=== PATIENT | female | born 1970 | race Caucasian/White ===

== ENCOUNTER 2019-05-25 17:08 | Emergency (ER) | payer SELFPAY ==
[2019-05-25] MEDS ORDERED: ZIPRASIDONE MESYLATE INJ/PF 20 MG SDV IM ONE ×2 (17:33→18:02)
--- NOTE | 2019-05-25 17:36 | ER Document Report ---
ED Medical Screen (RME) - General Chief Complaint: Psych Problem Stated Complaint: POSSIBLE ANIEXY Time Seen by Provider: 05/25/19 17:32 TRAVEL OUTSIDE OF THE [place] IN LAST 30 DAYS: No - HPI Notes: 05/25/19 17:34 I was called to the waiting room for this patient and she appears to be very manic and paranoid with history of mental health disorder, unknown diagnosis by family member who is accompanying her. Patient does take Prozac as well as Seroquel. Patient was escorted to the room with security and Dr. Wiggins met us there who assumed care. I have treated and performed a rapid initial assessment of this patient. A comprehensive ED assessment and evaluation of the patient, analysis of test results and completion of medical decision making process will be conducted by additional ED providers. PHYSICAL EXAMINATION: GENERAL: manic, paronoid, flight of thoughts - Related Data Allergies/Adverse Reactions: No Known Allergies Allergy (Unverified 05/25/19 17:10)
[2019-05-25 18:50] LABS: ABSOLUTE BASOPHILS # (AUTO) 0.1 10^3/uL (0.0-0.2); ABSOLUTE EOSINOPHILS # (AUTO) 0.1 10^3/uL (0.0-0.6); ABSOLUTE LYMPHOCYTES (AUTO) 1.6 10^3/uL (0.5-4.7); ABSOLUTE MONOCYTES (AUTO) 0.4 10^3/uL (0.1-1.4); EOSINOPHILS % (AUTO) 2.3 % (0-6); HEMATOCRIT 39.1 % (36.0-47.0); HEMOGLOBIN 13.2 g/dL (12.0-15.5); LYMPHOCYTES % (AUTO) 31.3 % (13-45); MEAN CORPUSCULAR HEMOGLOBIN 28.4 pg (27.0-33.4); MEAN CORPUSCULAR HGB CONC 33.7 g/dL (32.0-36.0); MEAN CORPUSCULAR VOLUME 85 fl (80-97); MONOCYTES % (AUTO) 7.7 % (3-13); PLATELET COUNT 257 10^3/uL (150-450); RED BLOOD COUNT 4.63 10^6/uL (3.72-5.28); RED CELL DISTRIBUTION WIDTH 13.3 % (11.5-14.0); SEGMENTED NEUTROPHILS % (AUTO) 57.7 % (42-78); TOTAL CELLS COUNTED % (AUTO) 100 %; WHITE BLOOD COUNT 5.3 10^3/uL (4.0-10.5)
[2019-05-25 19:06] LABS: ALBUMIN 4.4 g/dL (3.5-5.0); ALKALINE PHOSPHATASE 87 U/L (38-126); ANION GAP 12 (5-19); ASPARTATE AMINO TRANSFERASE 30 U/L (14-36); BILIRUBIN,DIRECT 0.2 mg/dL (0.0-0.4); BILIRUBIN,TOTAL 0.4 mg/dL (0.2-1.3); BLOOD UREA NITROGEN 11 mg/dL (7-20); CALCIUM 9.6 mg/dL (8.4-10.2); CARBON DIOXIDE 23 mmol/L (22-30); CHLORIDE 102 mmol/L (98-107); GLUCOSE 104 mg/dL (75-110); POTASSIUM 3.6 mmol/L (3.6-5.0)
[2019-05-25 19:07] LABS: ACETAMINOPHEN < 10 ug/mL (10-30); ALCOHOL < 10 mg/dL (NONE DETECTED); SALICYLATE < 1.0 mg/dL (2.0-20.0)
[2019-05-25 20:44] LABS: AMORPHOUS SEDIMENT,URINE TRACE /HPF; APPEARANCE,URINE CLOUDY; BILIRUBIN,URINE NEGATIVE (NEGATIVE); COLOR,URINE YELLOW; GLUCOSE, URINE NEGATIVE (NEGATIVE); KETONES,URINE NEGATIVE (NEGATIVE); LEUKOCYTE ESTERASE,URINE NEGATIVE (NEGATIVE); NITRITE,URINE NEGATIVE (NEGATIVE); PROTEIN,URINE NEGATIVE (NEGATIVE); URINE SPECIFIC GRAVITY 1.009; UROBILINOGEN,URINE NEGATIVE mg/dL (<2.0)
[2019-05-25 20:49] LABS: URINE BARBITURATES SCREEN NEGATIVE; URINE BENZODIAZEPINES SCREEN NEGATIVE; URINE COCAINE SCREEN NEGATIVE; URINE MARIJUANA (THC) SCREEN NEGATIVE; URINE METHADONE SCREEN NEGATIVE; URINE PHENCYCLIDINE SCREEN NEGATIVE
--- NOTE | 2019-05-25 21:18 | ER Document Report ---
ED General - General Chief Complaint: Psych Problem Stated Complaint: POSSIBLE ANIEXY Time Seen by Provider: 05/25/19 17:32 TRAVEL OUTSIDE OF THE [place] IN LAST 30 DAYS: No - HPI Notes: Patient is a 49-year-old female who presents to the emergency department for evaluation. Entire history is garnered from a man who presents himself as her boyfriend. He states that the patient lives in [place]. She has had some significant mental health issues, although he is not sure of her current diagnosis. She is on Prozac and Seroquel. Evidently her sister was murdered recently. They were on a road trip in the patient's where she saw her sister. Evidently, since then, she has been increasingly paranoid and volatile in behavior. He brings her here for further evaluation. Unfortunately, given patient's current mental state I cannot obtain any meaningful information from her at this time. - Related Data Allergies/Adverse Reactions: No Known Allergies Allergy (Unverified 05/25/19 17:10) Home Medications: Prozac, Seroquel Past Medical History - General Information source: Friend - Social History Smoking Status: Current Every Day Smoker Drug Abuse: Methamphetamine - History of methamphetamine use, unknown if current Family History: Reviewed & Not Pertinent Patient has suicidal ideation: No Patient has homicidal ideation: No Renal/ Medical History: Denies: Hx Peritoneal Dialysis Psychiatric Medical History: Reports: Other - Unknown psychiatric disorder Review of Systems - Review of Systems -: Yes ROS unobtainable due to patient's medical condition - Patient is currently psychotic Physical Exam - Vital signs Vitals: Temp Pulse Resp BP Pulse Ox 98 F 92 22 H 123/75 94 05/25/19 17:32 05/25/19 17:32 05/25/19 17:32 05/25/19 17:32 05/25/19 17:32 - Notes Notes: This is a 49-year-old female who appears her stated age. She is being restrained by several guards. She is screaming, lashing out, punching. She is screaming about aliens, and that she has to save her parents from being murdered. She looks repeatedly had a application security engineer stating he is there to mur nixon her. Pupils are equal and round, reactive to light. Oral mucosa is moist. Heart is tachycardic with normal S1-S2. Abdomen is soft, appears nontender. Patient moves all 4 extremities spontaneously. She has no gross facial asymmetry. Skin is warm and mildly diaphoretic. Patient is clearly delusional and extremely agitated. Course - Re-evaluation Re-evalutation: 05/25/19 21:16 Patient presents to the emergency department for evaluation. On arrival here she was extremely agitated, and in extreme danger to herself and others. She was placed in four-point restraints and medicated with Geodon. Patient was a pulled to be reevaluated in the restraints removed, but she at this point is refusing to cooperate with examiner. She will not answer any questions. IVC order has been placed, patient is medically cleared. Awaiting psychiatric evaluation tomorrow. - Vital Signs Vital signs: Temp Pulse Resp BP Pulse Ox 98 F 92 22 H 123/75 94 05/25/19 17:32 05/25/19 17:32 05/25/19 17:32 05/25/19 17:32 05/25/19 17:32 - Laboratory Result Diagrams: 05/25/19 18:30 05/25/19 18:30 Laboratory results interpreted by me: 05/25/19 18:30 Salicylates < 1.0 L Acetaminophen < 10 L - EKG Interpretation by Me Additional EKG results interpreted by me: 05/25/19 21:17 Sinus mechanism with a rate of 65 bpm. Normal axis and intervals, no acute ST changes concerning for ischemia or infarction. Discharge - Discharge Clinical Impression: Psychosis Qualifiers: Schizoaffective disorder type: unspecified Condition: Stable Disposition: OTHER
--- NOTE | 2019-05-26 09:01 | EKG REPORT ---
SEVERITY:- NORMAL ECG - SINUS RHYTHM : Confirmed by: Collette Cardoza MD 26-May-2019 09:00:32
--- NOTE | 2019-05-26 10:20 | ER Document Report ---
Doctor's Note Notes: 05/26/19 10:20 Rounds: Chart reviewed and patient interviewed. Patient was brought in for evaluation and treatment of paranoid feelings and manic state of bipolar disorder. Lab studies were all essentially normal. Vital signs are all essentially normal. Patient appears to be medically stable for transfer or discharge. Chintan Decker MD
[2019-05-26] MEDS ORDERED: CHLORPROMAZINE HCL INJ 25 MG/1 ML AMPULE IM ONE (11:47)
[2019-05-26] MEDS ORDERED: BENZTROPINE MESYLATE INJ 2 MG/2 ML AMPULE IM ONE (11:49)
[2019-05-26] MEDS: CHLORPROMAZINE HCL 50 MG TABLET PO SCH ×3 (12:34→23:31)
[2019-05-26] MEDS: BENZTROPINE MESYLATE 1 MG TABLET PO SCH (12:34)
[2019-05-27] MEDS: CHLORPROMAZINE HCL 50 MG TABLET PO SCH ×3 (07:04→22:20)
--- NOTE | 2019-05-27 09:55 | ER Document Report ---
Doctor's Note Notes: 05/27/19 09:55 49-year-old male who presented initially extremely agitated with possibly some hallucinations or paranoid delusions. Questions about the patient possibly using meth amphetamines. Patient has been much more calm and cooperative. Vital signs stable. Labs as recorded.
[2019-05-27] MEDS: BENZTROPINE MESYLATE 1 MG TABLET PO SCH (10:17)
--- NOTE | 2019-05-27 13:41 | PSYCHOLOGICAL NOTE ---
Psych Note - Psych Note Date seen by psych provider: 05/26/19 Time seen by psych provider: 07:50 Psych Note: Reason for Consult: psychosis Patient is a 49-year-old female who presents to the emergency department for evaluation. Patient refuses to engage with evaluation stating that she will not report why she had to come to [facility] because "you all make it look like I am crazy." Patient refused to roll over or turn and face clinician. Patient then started to ask if her mother and father are currently in the hospital as patient's. Patient becomes very agitated and really refuses to further engage. Unspecified psychosis R/O methamphetamine use Medication recommendations per [facility]'s contracted psychiatrist Dr. Pauline SHAVER are as follows Thorazine 50 mg every 8 hours Cogentin 1 mg daily Impression\\plan: Patient is recommended to continue under IVC. Patient refuses to effectively engage with clinician demonstrates continued difficulties with organized and linear thought processes. Medication recommendations have been provided and patient will be reevaluated. Dr. Villasenor was consulted to care management of this patient; attending physicians in agreement with recommendations and disposition.
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
[2019-05-28] MEDS: CHLORPROMAZINE HCL 50 MG TABLET PO SCH (05:50)
--- NOTE | 2019-05-28 09:10 | ER Document Report ---
Doctor's Note Notes: 05/28/19 09:09 Patient is calm and cooperative at this time. Vital signs are stable. Labs from previously as recorded. Awaiting psychology/psychiatry disposition. 05/28/19 11:54 The psychology/behavioral health team is seen and assessed the patient. They do not believe that the patient meets IVC criteria at this time. Patient is very thought congruent at this time and oriented x4. Father and brother are currently in the room I would like to take the patient home. Patient understands the importance of refraining from drugs. She currently denies any auditory or visual hallucinations. She denies any suicidal homicidal ideations. Patient supposedly has a history of bipolar disorder but does not believe that she requires medications. She currently has no flight of ideas or racing thoughts. She currently denies any pain to any part of the body. Patient is new to this area as is the family. They feel very comfortable taking the patient home. We will provide outpatient psychiatric and substance abuse resources to the patient and family. They understand to return at anytime with any new or change in behavior.
[2019-05-28] MEDS ORDERED: CHLORPROMAZINE HCL INJ 25 MG/1 ML AMPULE IM PRN (09:54)
--- NOTE | 2019-05-28 10:11 | PSYCHOLOGICAL NOTE ---
Psych Note - Psych Note Date seen by psych provider: 05/28/19 Time seen by psych provider: 08:05 Psych Note: Reason for Consult: psychosis Patient is a 49-year-old female who presents to the emergency department for evaluation. Check in with patient Patient is observed smiling and engaging with her family. She reports she has no concerns at this time would like to go home. She confirms that she does not want to take medications for her possible bipolar diagnosis. Clinician highly encourage patient to refrain from using illegal substances as this will make her symptoms worse. Patient denies any thoughts of wanting to harm herself or others. She is not demonstrate any behaviors of responding to internal stimuli i.e. organized linear thought processes. Conversational speech is within normal rate, tone and prosody. She maintains eye contact well. Clinician met with patient father and boyfriend at bedside per patient's request. They report they have no concerns with the patient returning home with them. Boyfriend does ask about assistance in maintaining "episodes." When discussing the patient's wishes of not taking medications clinician provided psychoeducation. It was also discussed that the patient did have significant stressor of her sister's passing away a month ago which could trigger an episode. Patient was again highly encouraged to abstain from illegal substances. Methamphetamine use disorder Uncomplicated bereavement R/O bipolar Updated Medication recommendations per [facility]'s contracted psychiatrist Dr. Pauline SHAVER are as follows Thorazine 50 mg every 8 hours PRN Cogentin 1 mg daily PRN Impression\\plan: Patient is recommended for rescind of IVC and is cleared from acute psychiatric services. Patient no longer meets IVC criteria per [place] GS 122C. Patient is not demonstrating any behaviors of responding to internal stimuli. Delusions are absent behaviors congruent with an intact reality based presentation I organized and linear thought process. Both patient's father and boyfriend at bedside confirm they would like the patient return to return home and states they have no concerns at this time. Patient is highly encouraged to abstain from illegal substances and to follow-up with outpatient mental health and substance abuse treatment. Local resource list were provided to the patient including mobile crisis contact information. Dr. Villasenor was consulted to care management of this patient; attending physicians in agreement with recommendations and disposition.
[2019-05-28] MEDS: BENZTROPINE MESYLATE 1 MG TABLET PO SCH (12:13)
[2019-05-28 13:44] VITALS: BP 112/75
== END 2019-05-28 13:55 | disposition home or self-care (01) ==
LOC: ER 17:08
DX: F19.10 Other psychoactive substance abuse, uncomplicated (principal); Z63.4 Disappearance and death of family member; F29 Unspecified psychosis not due to a substance or known physiological condition; Z79.899 Other long term (current) drug therapy; F17.200 Nicotine dependence, unspecified, uncomplicated
CPT/HCPCS: 93005; 99284; 96372; 36415; 80307 ×4; 84703; 85025; 80053; 81001; 93010; J0515; J3230; J3490 ×3; J3486

== ENCOUNTER 2019-12-13 16:29 | Emergency (ER) | payer SELFPAY ==
[2019-12-13] MEDS ORDERED: ZIPRASIDONE MESYLATE INJ/PF 20 MG SDV IM ONE ×2 (16:38→16:39)
[2019-12-13] MEDS ORDERED: LORAZEPAM INJ 2 MG/1 ML VIAL IM ONE (16:39)
[2019-12-13] MEDS ORDERED: LORAZEPAM INJ 2 MG/1 ML VIAL IV ONE (16:53)
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
[2019-12-13 18:07] LABS: ABSOLUTE BASOPHILS # (AUTO) 0.1 10^3/uL (0.0-0.2); ABSOLUTE EOSINOPHILS # (AUTO) 0.1 10^3/uL (0.0-0.6); ABSOLUTE LYMPHOCYTES (AUTO) 1.1 10^3/uL (0.5-4.7); ABSOLUTE MONOCYTES (AUTO) 0.7 10^3/uL (0.1-1.4); BASOPHILS % (AUTO) 0.6 % (0-2); EOSINOPHILS % (AUTO) 0.6 % (0-6); HEMATOCRIT 32.8 % (36.0-47.0); HEMOGLOBIN 11.8 g/dL (12.0-15.5); LYMPHOCYTES % (AUTO) 9.8 % (13-45); MEAN CORPUSCULAR HEMOGLOBIN 29.8 pg (27.0-33.4); MEAN CORPUSCULAR HGB CONC 35.8 g/dL (32.0-36.0); MEAN CORPUSCULAR VOLUME 83 fl (80-97); MONOCYTES % (AUTO) 6.4 % (3-13); PLATELET COUNT 297 10^3/uL (150-450); RED BLOOD COUNT 3.94 10^6/uL (3.72-5.28); RED CELL DISTRIBUTION WIDTH 13.8 % (11.5-14.0); SEGMENTED NEUTROPHILS % (AUTO) 82.6 % (42-78); TOTAL CELLS COUNTED % (AUTO) 100 %; WHITE BLOOD COUNT 10.8 10^3/uL (4.0-10.5)
[2019-12-13 18:29] LABS: ALBUMIN 3.7 g/dL (3.5-5.0); ALKALINE PHOSPHATASE 111 U/L (38-126); ANION GAP 6 (5-19); ASPARTATE AMINO TRANSFERASE 30 U/L (14-36); BILIRUBIN,TOTAL 0.2 mg/dL (0.2-1.3); BLOOD UREA NITROGEN 12 mg/dL (7-20); CALCIUM 8.9 mg/dL (8.4-10.2); CARBON DIOXIDE 28 mmol/L (22-30); CHLORIDE 107 mmol/L (98-107); GLUCOSE 114 mg/dL (75-110); POTASSIUM 3.6 mmol/L (3.6-5.0); TOTAL PROTEIN 6.4 g/dL (6.3-8.2)
[2019-12-13 18:30] LABS: ALCOHOL < 10 mg/dL (NONE DETECTED)
[2019-12-14 00:59] LABS: APPEARANCE,URINE TURBID; BILIRUBIN,URINE NEGATIVE (NEGATIVE); COLOR,URINE YELLOW; GLUCOSE, URINE NEGATIVE (NEGATIVE); KETONES,URINE NEGATIVE (NEGATIVE); LEUKOCYTE ESTERASE,URINE MODERATE (NEGATIVE); NITRITE,URINE NEGATIVE (NEGATIVE); PROTEIN,URINE 100 mg/dL (NEGATIVE); URINE SPECIFIC GRAVITY 1.017; UROBILINOGEN,URINE NEGATIVE mg/dL (<2.0)
[2019-12-14 01:02] LABS: ADD MANUAL MICROSCOPIC YES; BACTERIA,URINE TRACE /HPF
[2019-12-14 01:03] LABS: AMORPHOUS SEDIMENT,UR TRACE
[2019-12-14 01:40] LABS: URINE BARBITURATES SCREEN NEGATIVE; URINE BENZODIAZEPINES SCREEN NEGATIVE; URINE COCAINE SCREEN NEGATIVE; URINE MARIJUANA (THC) SCREEN NEGATIVE; URINE METHADONE SCREEN NEGATIVE; URINE PHENCYCLIDINE SCREEN NEGATIVE
[2019-12-14 08:34] LABS: ACETAMINOPHEN < 10 ug/mL (10-30); SALICYLATE < 1.0 mg/dL (2.0-20.0)
[2019-12-14 09:15] LABS: ALBUMIN 4.2 g/dL (3.5-5.0); ALKALINE PHOSPHATASE 110 U/L (38-126); ANION GAP 10 (5-19); ASPARTATE AMINO TRANSFERASE 40 U/L (14-36); BILIRUBIN,DIRECT 0.2 mg/dL (0.0-0.4); BILIRUBIN,TOTAL 0.4 mg/dL (0.2-1.3); BLOOD UREA NITROGEN 12 mg/dL (7-20); CALCIUM 9.5 mg/dL (8.4-10.2); CARBON DIOXIDE 30 mmol/L (22-30); CHLORIDE 103 mmol/L (98-107); GLUCOSE 166 mg/dL (75-110); POTASSIUM 3.9 mmol/L (3.6-5.0); TOTAL PROTEIN 7.6 g/dL (6.3-8.2)
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
[2019-12-14] MEDS: CHLORPROMAZINE HCL 50 MG TABLET PO SCH ×2 (11:15→17:26)
[2019-12-14] MEDS ORDERED: BENZTROPINE MESYLATE 1 MG TABLET PO SCH (11:15)
--- NOTE | 2019-12-14 17:24 | EKG REPORT ---
SEVERITY:- ABNORMAL ECG - SINUS RHYTHM LEFT VENTRICULAR HYPERTROPHY : Confirmed by: Benja Ulrich 14-Dec-2019 17:23:24
[2019-12-14 17:36] VITALS: BP 98/87
== END 2019-12-14 17:33 ==
LOC: ER 16:29
DX: F23 Brief psychotic disorder (principal); R61 Generalized hyperhidrosis; R47.9 Unspecified speech disturbances; F17.210 Nicotine dependence, cigarettes, uncomplicated
CPT/HCPCS: 93005; 99291; 99292; 96372; 96374; 36415; 80307 ×4; 84443; 85025; 81025; 87070; 80053; 81001; 93010; J3490; J2060; J3486

== ENCOUNTER 2020-02-09 07:08 | Emergency (ER) | payer SELFPAY ==
[2020-02-09] MEDS ORDERED: HALOPERIDOL 5 MG TABLET PO ONE (07:15)
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
[2020-02-09 07:49] LABS: APPEARANCE,URINE CLOUDY; BILIRUBIN,URINE NEGATIVE (NEGATIVE); COLOR,URINE YELLOW; GLUCOSE, URINE NEGATIVE (NEGATIVE); KETONES,URINE NEGATIVE (NEGATIVE); LEUKOCYTE ESTERASE,URINE NEGATIVE (NEGATIVE); NITRITE,URINE NEGATIVE (NEGATIVE); PROTEIN,URINE 30 mg/dL (NEGATIVE); URINE SPECIFIC GRAVITY 1.019; UROBILINOGEN,URINE NEGATIVE mg/dL (<2.0)
[2020-02-09 08:02] LABS: ABSOLUTE BASOPHILS # (AUTO) 0.1 10^3/uL (0.0-0.2); ABSOLUTE EOSINOPHILS # (AUTO) 0.2 10^3/uL (0.0-0.6); ABSOLUTE LYMPHOCYTES (AUTO) 1.5 10^3/uL (0.5-4.7); ABSOLUTE MONOCYTES (AUTO) 0.6 10^3/uL (0.1-1.4); ABSOLUTE NEUT (AUTO) 4.7 10^3/uL (1.7-8.2); BASOPHILS % (AUTO) 1.4 % (0-2); HEMATOCRIT 37.9 % (36.0-47.0); HEMOGLOBIN 12.9 g/dL (12.0-15.5); LYMPHOCYTES % (AUTO) 20.7 % (13-45); MEAN CORPUSCULAR HEMOGLOBIN 29.1 pg (27.0-33.4); MEAN CORPUSCULAR HGB CONC 34.2 g/dL (32.0-36.0); MEAN CORPUSCULAR VOLUME 85 fl (80-97); PLATELET COUNT 323 10^3/uL (150-450); RED BLOOD COUNT 4.45 10^6/uL (3.72-5.28); RED CELL DISTRIBUTION WIDTH 13.9 % (11.5-14.0); SEGMENTED NEUTROPHILS % (AUTO) 65.9 % (42-78); TOTAL CELLS COUNTED % (AUTO) 100 %; WHITE BLOOD COUNT 7.1 10^3/uL (4.0-10.5)
[2020-02-09 08:05] LABS: URINE BARBITURATES SCREEN NEGATIVE; URINE BENZODIAZEPINES SCREEN NEGATIVE; URINE COCAINE SCREEN NEGATIVE; URINE MARIJUANA (THC) SCREEN NEGATIVE; URINE METHADONE SCREEN NEGATIVE; URINE PHENCYCLIDINE SCREEN NEGATIVE
--- NOTE | 2020-02-09 08:06 | ER Document Report ---
Doctor's Note Notes: 02/09/20 08:05 Report received on the patient, lab work is pending for medical clearance 02/09/20 08:22 Received a call from the lab they cannot result in amphetamine test again and are requesting an order to have it sent to [facility] 02/09/20 08:35 Lab work is resulted does not show acute emergent abnormalities. Patient is medically cleared for psychiatric service to evaluate
[2020-02-09 08:10] LABS: ALBUMIN 4.3 g/dL (3.5-5.0); ALKALINE PHOSPHATASE 117 U/L (38-126); ANION GAP 6 (5-19); ASPARTATE AMINO TRANSFERASE 35 U/L (14-36); BILIRUBIN,TOTAL 0.3 mg/dL (0.2-1.3); BLOOD UREA NITROGEN 11 mg/dL (7-20); CALCIUM 9.3 mg/dL (8.4-10.2); CARBON DIOXIDE 30 mmol/L (22-30); CHLORIDE 101 mmol/L (98-107); GLUCOSE 122 mg/dL (75-110); POTASSIUM 4.2 mmol/L (3.6-5.0); TOTAL PROTEIN 7.2 g/dL (6.3-8.2)
[2020-02-09 08:16] LABS: ACETAMINOPHEN < 10 ug/mL (10-30); ALCOHOL < 10 mg/dL (NONE DETECTED); SALICYLATE < 1.0 mg/dL (2.0-20.0)
--- NOTE | 2020-02-09 12:58 | EKG REPORT ---
SEVERITY:- NORMAL ECG - SINUS RHYTHM : Confirmed by: Saul Avendano MD 09-Feb-2020 12:57:56
[2020-02-09] MEDS ORDERED: BENZTROPINE MESYLATE INJ 2 MG/2 ML AMPULE IM PRN (14:31)
[2020-02-09] MEDS ORDERED: CHLORPROMAZINE HCL INJ 25 MG/1 ML AMPULE IM PRN (14:31)
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
[2020-02-09 18:22] VITALS: BP 142/75
== END 2020-02-09 22:18 | disposition home or self-care (01) ==
LOC: ER 07:08
DX: F14.10 Cocaine abuse, uncomplicated (principal); R45.6 Violent behavior; R45.1 Restlessness and agitation
CPT/HCPCS: 93005; 99285; 36415; 80307 ×5; 84703; 85025; 80053; 81001; 93010; G0480

== ENCOUNTER 2020-02-19 13:04 | Emergency (ER) | payer SELFPAY ==
[2020-02-19 13:51] LABS: ABSOLUTE BASOPHILS # (AUTO) 0.1 10^3/uL (0.0-0.2); ABSOLUTE EOSINOPHILS # (AUTO) 0.1 10^3/uL (0.0-0.6); ABSOLUTE LYMPHOCYTES (AUTO) 1.3 10^3/uL (0.5-4.7); ABSOLUTE MONOCYTES (AUTO) 0.4 10^3/uL (0.1-1.4); ABSOLUTE NEUT (AUTO) 2.7 10^3/uL (1.7-8.2); BASOPHILS % (AUTO) 1.4 % (0-2); EOSINOPHILS % (AUTO) 2.6 % (0-6); HEMATOCRIT 34.9 % (36.0-47.0); LYMPHOCYTES % (AUTO) 28.7 % (13-45); MEAN CORPUSCULAR HEMOGLOBIN 29.3 pg (27.0-33.4); MEAN CORPUSCULAR HGB CONC 34.2 g/dL (32.0-36.0); MEAN CORPUSCULAR VOLUME 86 fl (80-97); MONOCYTES % (AUTO) 9.4 % (3-13); PLATELET COUNT 270 10^3/uL (150-450); RED BLOOD COUNT 4.08 10^6/uL (3.72-5.28); RED CELL DISTRIBUTION WIDTH 13.8 % (11.5-14.0); SEGMENTED NEUTROPHILS % (AUTO) 57.9 % (42-78); TOTAL CELLS COUNTED % (AUTO) 100 %; WHITE BLOOD COUNT 4.7 10^3/uL (4.0-10.5)
[2020-02-19 14:01] LABS: ALBUMIN 3.8 g/dL (3.5-5.0); ALKALINE PHOSPHATASE 119 U/L (38-126); ANION GAP 8 (5-19); ASPARTATE AMINO TRANSFERASE 41 U/L (14-36); BILIRUBIN,TOTAL 0.3 mg/dL (0.2-1.3); BLOOD UREA NITROGEN 15 mg/dL (7-20); CALCIUM 8.9 mg/dL (8.4-10.2); CARBON DIOXIDE 24 mmol/L (22-30); CHLORIDE 106 mmol/L (98-107); GLUCOSE 75 mg/dL (75-110); POTASSIUM 3.7 mmol/L (3.6-5.0)
[2020-02-19 14:03] LABS: ACETAMINOPHEN < 10 ug/mL (10-30); ALCOHOL < 10 mg/dL (NONE DETECTED); SALICYLATE < 1.0 mg/dL (2.0-20.0)
[2020-02-19] MEDS ORDERED: CHLORPROMAZINE HCL INJ 25 MG/1 ML AMPULE IM PRN (14:37)
[2020-02-19] MEDS ORDERED: BENZTROPINE MESYLATE INJ 2 MG/2 ML AMPULE IM SCH (14:45)
--- NOTE | 2020-02-19 15:01 | ER Document Report ---
ED Psych Disorder / Suicide - General Mode of Arrival: Medic Information source: Patient TRAVEL OUTSIDE OF THE [place] IN LAST 30 DAYS: No <OSCAR HARTMAN - Last Filed: 02/19/20 21:55> <ADAN AGUSTIN - Last Filed: 02/19/20 23:46> - General Chief Complaint: Altered Mental Status Stated Complaint: ABNORMAL BEHAVIOR Time Seen by Provider: 02/19/20 13:44 Notes: 49-year-old female past medical history significant for anxiety, ADHD, schizophrenia arrived to the emergency room via EMS who were called because she was noted to be walking down the street with erratic behavior was uncooperative for EMS she was given 180 mg of IM ketamine. Patient is now able to answer questions appropriately. She is alert and oriented x3. Refuses to discuss why she was brought to the emergency room. States she uses drugs but will not provide the provider with her most current drug use. Patient does not know why EMS was called. She does recall getting the shot of ketamine. She offers no other complaints. She denies any suicidal or homicidal ideation. Patient does seem very agitated. Argumentative, not cooperative. (OSCAR HARTMAN) - Related Data Allergies/Adverse Reactions: No Known Allergies Allergy (Unverified 05/25/19 17:10) Past Medical History - General Information source: Patient - Social History Smoking Status: Current Some Day Smoker Frequency of alcohol use: Social Drug Abuse: Marijuana, Other Family History: Reviewed & Not Pertinent Patient has homicidal ideation: No Renal/ Medical History: Denies: Hx Peritoneal Dialysis Psychiatric Medical History: Reports: Hx Schizophrenia - Immunizations Hx Diphtheria, Pertussis, Tetanus Vaccination: Yes <OSCAR HARTMAN - Last Filed: 02/19/20 21:55> Review of Systems - Review of Systems Constitutional: No symptoms reported Cardiovascular: No symptoms reported Respiratory: No symptoms reported Musculoskeletal: No symptoms reported Skin: No symptoms reported Neurological/Psychological: Confusion. denies: Homicidal ideation, Suicidal ideation -: Yes All other systems reviewed and negative <OSCAR HARTMAN - Last Filed: 02/19/20 21:55> Physical Exam - General General appearance: Appears well, Alert In distress: Mild - HEENT Head: Normocephalic, Atraumatic Eyes: Normal Pupils: PERRL - Respiratory Respiratory status: No respiratory distress Chest status: Nontender Breath sounds: Normal Chest palpation: Normal - Cardiovascular Rhythm: Regular Heart sounds: Normal auscultation Murmur: No - Extremities General upper extremity: Normal inspection, Nontender, Normal color, Normal ROM, Normal temperature General lower extremity: Normal inspection, Nontender, Normal color, Normal ROM, Normal temperature, Normal weight bearing. No: Dany's sign - Neurological Neuro grossly intact: Yes Cognition: Normal Orientation: AAOx4 [place] Coma Scale Eye Opening: Spontaneous [place] Coma Scale Verbal: Oriented Nick Coma Scale Motor: Obeys Commands Nick Coma Scale Total: 15 Speech: Normal Motor strength normal: LUE, RUE, LLE, RLE Sensory: Normal - Psychological Associated symptoms: Agitated, Manic - Skin Skin Temperature: Warm Skin Moisture: Dry Skin Color: Normal <OSCAR HARTMAN - Last Filed: 02/19/20 21:55> - Vital signs Vitals: Temp Pulse Resp BP Pulse Ox 98.5 F 87 18 148/90 H 96 02/19/20 13:06 02/19/20 13:06 02/19/20 13:06 02/19/20 13:06 02/19/20 13:06 Course - Laboratory Result Diagrams: 02/19/20 13:07 02/19/20 13:07 - EKG Interpretation by Al EKG shows normal: Sinus rhythm <OSCAR HARTMAN - Last Filed: 02/19/20 21:55> - Laboratory Result Diagrams: 02/19/20 13:07 02/19/20 13:07 <ADAN AGUSTIN - Last Filed: 02/19/20 23:46> - Re-evaluation Re-evalutation: 02/19/20 14:15 Nurse informed provider that mental health is going to see and evaluate the patient. Patient seen here previously for erratic behavior IVC papers were started at that time. Patient is becoming fidgety and aggressive. Provider stated at the bedside while patient undressed herself. In attempt to remove patient's personal belongings she again became aggressive. Security was called to the bedside to help assist level of personal belongings, patient is now res ting in bed awaiting clearance and mental health evaluation. 02/19/20 17:17 Patient is resting comfortably patient has provided a urine specimen. 02/19/20 17:23 Notified by nursing staff that patient has eloped. Security notified, [place] [employer] notified. 02/19/20 17:27 Patient was returned to the emergency room by security. Patient unwilling to be cooperative. Placed in four-point restraints. Medications ordered. 02/19/20 19:25 Patient is resting no acute distress nonviolent at this time. Restraints removed. 02/19/2020 20:00 Sitting up in bed eating no distress noted. 02/19/20 21:06 Patient is sleeping no distress noted. IVC rescinded by Alfonzo PERERAW. Can be discharged when awake 02/19/20 21:07 02/19/20 21:55 Care of patient was transferred to [facility], nurse practitioner discussed H&P, when stable for discharge. (OSCAR HARTMAN) - Vital Signs Vital signs: Temp Pulse Resp BP Pulse Ox 98.5 F 87 18 148/90 H 96 02/19/20 13:06 02/19/20 13:06 02/19/20 13:06 02/19/20 13:06 02/19/20 13:06 - Laboratory Laboratory results interpreted by ri: 02/19/20 02/19/20 13:07 13:07 Hct 34.9 L AST 41 H Salicylates < 1.0 L Acetaminophen < 10 L - EKG Interpretation by Al Additional EKG results interpreted by ri: 02/19/20 15:25 EKG was interpreted by ED physician Dr. Mckay No Acute STEMI (OSCAR HARTMAN) Discharge <OSCAR HARTMAN - Last Filed: 02/19/20 21:55> <ADAN AGUSTIN - Last Filed: 02/19/20 23:46> - Discharge Clinical Impression: Agitation, Substance abuse Condition: Stable Disposition: HOME, SELF-CARE Additional Instructions: Avoid methamphetamine or any recreational/illegal substance. These are extremely dangerous and will lead to your . Follow-up with detox/substance abuse referrals for additional management. Return for any returned or concerning symptoms, or if something is not right. [facility] [address] [place] [address], [place] [address] Hours: Open 24 hours Referrals: [facility] [Provider Group] - Follow up as needed
--- NOTE | 2020-02-19 17:23 | PSYCHOLOGICAL NOTE ---
Psych Note - Psych Note Date seen by psych provider: 02/19/20 Psych Note: Reason for Consult: AMS Patient arrived AMS; with a history of substance abuse (Meth) and it appears the patient is currently under the influence. Attending provider request 24 hour petition for evaluation. Petition is signed and placed in patient's chart. Patient will be evaluated once sober. Chart review conducted: Patient has documented history of methamphetamine use. Patient was seen 12/14/2019 and 02/09/2020 and was positive for meth. She was sent to [facility] on IVC on 12/14/2019. She has not followed up with outpatient substance abuse treatment. Check in Patient was awake and eating dinner. She reports that she will take resource information however is uninterested in going to [facility] at this time. Patient denies any concerns at this time. She denies any thoughts of wanting to harm herself or others. Patient is semi-alert and orientated to person, place, time and circumstance. It is noted patient is having difficult time staying awake as she was administered medications however is not demonstrating any behaviors of responding to internal stimuli. Patient is calm and acting appropriately i.e. no longer yelling out attempting to run or talking nonsense. Impression/plan:Patient is recommended for rescind of 24-hour petition for evaluation as she is no longer under the influence. Paperwork has been signed and placed in patient's chart. Patient was highly encouraged to follow-up with outpatient substance abuse treatment. Referral to [facility] has been submitted. Dr. Villasenor was consulted to care management of this patient; any physicians in agreement with recommendations and disposition.
[2020-02-19 17:34] LABS: AMORPHOUS SEDIMENT,URINE TRACE /HPF; APPEARANCE,URINE CLOUDY; BILIRUBIN,URINE NEGATIVE (NEGATIVE); COLOR,URINE YELLOW; GLUCOSE, URINE NEGATIVE (NEGATIVE); KETONES,URINE NEGATIVE (NEGATIVE); LEUKOCYTE ESTERASE,URINE NEGATIVE (NEGATIVE); NITRITE,URINE NEGATIVE (NEGATIVE); PROTEIN,URINE NEGATIVE (NEGATIVE); URINE SPECIFIC GRAVITY 1.014; UROBILINOGEN,URINE NEGATIVE mg/dL (<2.0)
[2020-02-19 17:47] LABS: URINE BARBITURATES SCREEN NEGATIVE; URINE COCAINE SCREEN NEGATIVE; URINE MARIJUANA (THC) SCREEN NEGATIVE; URINE METHADONE SCREEN NEGATIVE; URINE PHENCYCLIDINE SCREEN NEGATIVE
[2020-02-19] MEDS ORDERED: BENZTROPINE MESYLATE INJ 2 MG/2 ML AMPULE IM ONE (17:54)
[2020-02-19 17:57] LABS: URINE BENZODIAZEPINES SCREEN UNCONFIRMED POSITIVE
--- NOTE | 2020-02-19 22:10 | EKG REPORT ---
SEVERITY:- NORMAL ECG - SINUS RHYTHM : Confirmed by: Benja Ulrich 19-Feb-2020 22:10:29
[2020-02-20 07:03] VITALS: BP 101/83
[2020-02-20] MEDS ORDERED: BENZTROPINE MESYLATE INJ 2 MG/2 ML AMPULE IM ONE (17:45)
== END 2020-02-20 10:05 | disposition home or self-care (01) ==
LOC: ER 13:04
DX: R45.1 Restlessness and agitation (principal); F19.10 Other psychoactive substance abuse, uncomplicated; R41.82 Altered mental status, unspecified; F17.200 Nicotine dependence, unspecified, uncomplicated
CPT/HCPCS: 93005; 99285; 96372; 36415; 80307 ×5; 85025; 80053; 81001; 93010; G0480; J0515; J3230

== ENCOUNTER 2020-02-27 21:19 | Emergency (ER) | payer SELFPAY ==
--- NOTE | 2020-02-27 21:36 | PSYCHOLOGICAL NOTE ---
Psych Note - Psych Note Date seen by psych provider: 02/27/20 Psych Note: Medication recommendations per [facility]'s contracted psychiatrist Dr. Pauline SHAVER are as follows Thorazine 50 mg every 8 hours Cogentin 1 mg daily
[2020-02-27] MEDS ORDERED: CHLORPROMAZINE HCL 50 MG TABLET PO PRN (21:45)
[2020-02-27] MEDS: BENZTROPINE MESYLATE 1 MG TABLET PO SCH (22:11)
[2020-02-27 22:35] LABS: ABSOLUTE EOSINOPHILS # (AUTO) 0.1 10^3/uL (0.0-0.6); ABSOLUTE LYMPHOCYTES (AUTO) 1.6 10^3/uL (0.5-4.7); ABSOLUTE MONOCYTES (AUTO) 0.6 10^3/uL (0.1-1.4); ABSOLUTE NEUT (AUTO) 3.4 10^3/uL (1.7-8.2); BASOPHILS % (AUTO) 0.9 % (0-2); EOSINOPHILS % (AUTO) 2.6 % (0-6); HEMATOCRIT 37.5 % (36.0-47.0); HEMOGLOBIN 12.6 g/dL (12.0-15.5); LYMPHOCYTES % (AUTO) 28.4 % (13-45); MEAN CORPUSCULAR HEMOGLOBIN 28.5 pg (27.0-33.4); MEAN CORPUSCULAR HGB CONC 33.6 g/dL (32.0-36.0); MEAN CORPUSCULAR VOLUME 85 fl (80-97); MONOCYTES % (AUTO) 9.6 % (3-13); PLATELET COUNT 304 10^3/uL (150-450); RED BLOOD COUNT 4.42 10^6/uL (3.72-5.28); RED CELL DISTRIBUTION WIDTH 13.8 % (11.5-14.0); SEGMENTED NEUTROPHILS % (AUTO) 58.5 % (42-78); TOTAL CELLS COUNTED % (AUTO) 100 %; WHITE BLOOD COUNT 5.8 10^3/uL (4.0-10.5)
[2020-02-27 22:45] LABS: APPEARANCE,URINE SLIGHTLY-CLOUDY; BILIRUBIN,URINE NEGATIVE (NEGATIVE); COLOR,URINE YELLOW; GLUCOSE, URINE NEGATIVE (NEGATIVE); KETONES,URINE NEGATIVE (NEGATIVE); LEUKOCYTE ESTERASE,URINE TRACE (NEGATIVE); NITRITE,URINE NEGATIVE (NEGATIVE); PROTEIN,URINE NEGATIVE (NEGATIVE); URINE SPECIFIC GRAVITY 1.021; UROBILINOGEN,URINE NEGATIVE mg/dL (<2.0)
[2020-02-27 22:48] LABS: ALKALINE PHOSPHATASE 120 U/L (38-126); ANION GAP 9 (5-19); ASPARTATE AMINO TRANSFERASE 30 U/L (14-36); BILIRUBIN,TOTAL 0.3 mg/dL (0.2-1.3); BLOOD UREA NITROGEN 17 mg/dL (7-20); CALCIUM 9.2 mg/dL (8.4-10.2); CARBON DIOXIDE 24 mmol/L (22-30); CHLORIDE 103 mmol/L (98-107); GLUCOSE 109 mg/dL (75-110); POTASSIUM 3.7 mmol/L (3.6-5.0); TOTAL PROTEIN 6.9 g/dL (6.3-8.2)
[2020-02-27 22:50] LABS: ACETAMINOPHEN < 10 ug/mL (10-30); ALCOHOL < 10 mg/dL (NONE DETECTED); SALICYLATE < 1.0 mg/dL (2.0-20.0)
[2020-02-27 22:51] LABS: URINE BARBITURATES SCREEN NEGATIVE; URINE BENZODIAZEPINES SCREEN NEGATIVE; URINE COCAINE SCREEN NEGATIVE; URINE MARIJUANA (THC) SCREEN NEGATIVE; URINE METHADONE SCREEN NEGATIVE; URINE PHENCYCLIDINE SCREEN NEGATIVE
--- NOTE | 2020-02-27 22:51 | ER Document Report ---
ED Psych Disorder / Suicide - General Mode of Arrival: Ambulatory Information source: Patient TRAVEL OUTSIDE OF THE U.S. IN LAST 30 DAYS: No - HPI Patient complains to provider of: No: Homicidal ideation, Suicidal ideation Associated symptoms: Auditory hallucinations, Visual hallucinations Similar symptoms previously: Yes Recently seen / treated by doctor: Yes - Related Data Home Medications: Gabapentin <MINE FITZGERALD - Last Filed: 02/27/20 23:48> <KATHY MYERS - Last Filed: 02/28/20 00:59> <EDWIN RAMAN - Last Filed: 02/28/20 10:21> - General Chief Complaint: Psych Problem Stated Complaint: IVC W/PAPERS Time Seen by Provider: 02/27/20 21:27 Notes: Patient presents in the custody of lawyer real estate with IVC paperwork. Patient was found walking in the road and going up to people's houses. Patient has been having auditory and visual hallucinations. Patient with a history of mental illness and has not been on any medications. (MINE FITZGERALD) - Related Data Allergies/Adverse Reactions: No Known Allergies Allergy (Unverified 05/25/19 17:10) Past Medical History - General Information source: Patient - Social History Smoking Status: Current Every Day Smoker Frequency of alcohol use: Occasional Family History: Reviewed & Not Pertinent Patient has homicidal ideation: No Renal/ Medical History: Denies: Hx Peritoneal Dialysis Psychiatric Medical History: Reports: Hx Schizophrenia Surgical Hx: Negative - Immunizations Hx Diphtheria, Pertussis, Tetanus Vaccination: Yes <MINE FITZGERALD - Last Filed: 02/27/20 23:48> Review of Systems - Review of Systems -: Yes ROS unobtainable due to patient's medical condition <MINE FITZGERALD - Last Filed: 02/27/20 23:48> Physical Exam - General General appearance: Appears well, Alert In distress: None - Respiratory Respiratory status: No respiratory distress Chest status: Nontender Breath sounds: Normal. No: Rales, Rhonchi, Stridor, Wheezing Chest palpation: Normal - Cardiovascular Rhythm: Regular Heart sounds: S1 appreciated, S2 appreciated Murmur: No - Back Back: Normal, Nontender. No: CVA tenderness - Extremities General upper extremity: Normal inspection, Normal ROM General lower extremity: Normal inspection, Normal ROM - Neurological [place] Coma Scale Eye Opening: Spontaneous [place] Coma Scale Verbal: Oriented [place] Coma Scale Motor: Obeys Commands Nick Coma Scale Total: 15 - Psychological Associated symptoms: Auditory hallucinations, Visual hallucinations - Skin Skin Temperature: Warm Skin Moisture: Dry Skin Color: Normal <MINE FITZGERALD - Last Filed: 02/27/20 23:48> - Vital signs Vitals: Temp Pulse Resp BP Pulse Ox 97.6 F 84 15 145/96 H 99 02/27/20 21:32 02/27/20 21:32 02/27/20 21:32 02/27/20 21:32 02/27/20 21:32 Course - Laboratory Result Diagrams: 02/27/20 22:10 02/27/20 22:10 <MINE FITZGERADL - Last Filed: 02/27/20 23:48> - Laboratory Result Diagrams: 02/27/20 22:10 02/27/20 22:10 <KATHY MYERS - Last Filed: 02/28/20 00:59> - Laboratory Result Diagrams: 02/27/20 22:10 02/27/20 22:10 <EDWIN RAMAN - Last Filed: 02/28/20 10:21> - Re-evaluation Re-evalutation: 02/27/20 23:24 Patient medically clear at this time, patient is awaiting mental health evaluation and dispo. 02/27/20 23:48 Report and handoff given to Kathy Madrid PHOTO TECHNOLOGIST (MINE FITZGERALD) 02/28/20 00:59 Report had been received on the patient at 2348. Patient is resting quietly at this time in no distress. She was positive for amphetamines. Still awaiting psychiatric evaluation but is medically cleared for same (KATHY MYERS) - Vital Signs Vital signs: Temp Pulse Resp BP Pulse Ox 97.6 F 84 15 145/96 H 99 02/27/20 21:33 02/27/20 21:32 02/27/20 21:32 02/27/20 21:32 02/27/20 21:32 - Laboratory Laboratory results interpreted by me: 02/27/20 02/27/20 21:50 22:10 Sodium 136.3 L Ur Leukocyte Esterase TRACE H Salicylates < 1.0 L Acetaminophen < 10 L Discharge <MINE FITZGERALD - Last Filed: 02/27/20 23:48> <KATHY MYERS - Last Filed: 02/28/20 00:59> <EDWIN RAMAN - Last Filed: 02/28/20 10:21> - Discharge Clinical Impression: Auditory hallucination, Visual hallucinations Condition: Stable Disposition: PSYCH HOSP/UNIT
--- NOTE | 2020-02-28 07:16 | EKG REPORT ---
SEVERITY:- NORMAL ECG - SINUS RHYTHM : Confirmed by: Saul Avendano MD 28-Feb-2020 07:15:18
--- NOTE | 2020-02-28 08:33 | PSYCHOLOGICAL NOTE ---
Psych Note - Psych Note Date seen by psych provider: 02/28/20 Time seen by psych provider: 07:50 Psych Note: Reason For Consult: Consent Permissions: Patient arrived to [facility] ED under IVC via [facility] mobile crisis. There is concern the patient continues to be non-med compliant with her psychiatric medications and abuses methamphetamines. Patient has been experiencing auditory and visual hallucinations, wandering on to the road and other people's property and making gestures that she is going to throw her shoes at people. Patient reportedly attempted to jump out of the window last night and attempt to run away. Patient reports that she came to [facility] because "they thought I should come in." She denies all reported information listed in IVC petition however, does confirm methamphetamine use. Clinician discussed concerns in regards to patient coming in approximately every 10 days and connection to her meth use and behaviors that are putting herself and others in danger. Patient reports she would like to go to detox and rehab after that. She confirms she understands many rehab options are not available due to COVID however would like to do detox. Patient minimally engages with clinician. She is guarded with very quite conversational speech. Patient denies any thoughts of wanting to harm herself or others however admits to methamphetamine use. Clinician notes this is a significant step forward for the patient as she historically has refused to even discuss any substance abuse issues. Patient presents overall clean however hair looks greasy in need of washing. Currently patient is demonstrating behaviors are congruent with an intact rather based presentation I organized anemia thought processes; delusions are absent. Eye contact is fair to poor. Attention and concentration is fair. Insight, judgment, impulse control are poor. Diagnosis: Methamphetamine abuse R/O mood disorder Impression\\plan: Patient is recommended to continue under IVC. This is the patient's third visit this month (02/09/2020, 02/19/2020, 02/27/2020) for c oncerns of her behaviors while under the influence of methamphetamines. Historically patient has refused to even discuss her methamphetamine use. Today she is admitting to using and would like detox. There is concerned the patient will not follow through in addition to her very withdrawn and guarded presentation. Patient's paperwork has been submitted to [facility] crisis center for placement consideration. Dr. Villasenor was consulted to care management of this patient; attending physicians in agreement with recommendations and disposition.
[2020-02-28] MEDS: BENZTROPINE MESYLATE 1 MG TABLET PO SCH (09:43)
--- NOTE | 2020-02-28 10:18 | ER Document Report ---
Doctor's Note Notes: 02/28/20 10:16 PHYSICAL EXAMINATION: GENERAL: Appears well, healthy, well-nourished, no acute distress. LUNGS: Equal breath sounds bilaterally and clear to auscultation. No wheezes rales or rhonchi. CARDIOVASCULAR: S1-S2, regular rate, regular rhythm. Radial pulses 2+, normal. ABDOMEN: Normoactive bowel sounds. Soft, nontender, no guarding, no rebound tenderness, and no masses palpated. PSYCH: Normal mood, normal affect. Patient denies any suicidal or homicidal ideation. Plan is for the patient to go to [facility] for inpatient treatment. Patient is in agreement with this plan.
[2020-02-28 10:35] VITALS: BP 136/62
== END 2020-02-28 10:37 ==
LOC: ER 21:19
DX: R44.1 Visual hallucinations (principal); R44.0 Auditory hallucinations; F17.200 Nicotine dependence, unspecified, uncomplicated; Z86.59 Personal history of other mental and behavioral disorders
CPT/HCPCS: 36415; 80053; 80307; 81001; 84703; 85025; 93005; 93010; 99285

== ENCOUNTER 2020-03-05 22:45 | Emergency (ER) | payer SELFPAY ==
--- NOTE | 2020-03-05 23:35 | ER Document Report ---
ED General - General Chief Complaint: Psych Problem Stated Complaint: PSYCH Time Seen by Provider: 03/05/20 22:59 Mode of Arrival: Ambulatory Information source: Patient Notes: 49-year-old female arrives with chief complaint of feeling anxious and having exacerbation of her bipolar OCD ADHD and anxiety after smoking marijuana and using cocaine crack type as well as other stuff including methamphetamine. Patient cannot sit still in her gurney and is constantly moving her arms and legs and torso. Patient denies any cephalgia hemoptysis skin lesions IV drug abuse cough cold exposure to coronavirus or flu or foreign peoples. Patient denies any travel to foreign countries. At this time this country in the world are in pandemic because of coronavirus. Patient reports she has been here before around 4 weeks prior and saw behavioral health for the same problem. She last ate some cereal for breakfast. TRAVEL OUTSIDE OF THE [place] IN LAST 30 DAYS: No - HPI Onset: This morning Onset/Duration: Sudden, Persistent Quality of pain: No pain Severity: None Pain Level: Denies Associated symptoms: None Exacerbated by: Denies Relieved by: Denies Similar symptoms previously: Yes Recently seen / treated by doctor: Yes - Related Data Allergies/Adverse Reactions: No Known Allergies Allergy (Unverified 05/25/19 17:10) Past Medical History - General Information source: Patient - Social History Smoking Status: Current Every Day Smoker Cigarette use (# per day): Yes Chew tobacco use (# tins/day): No Smoking Education Provided: Yes Frequency of alcohol use: Occasional Drug Abuse: Cocaine - No bath, Marijuana, Methamphetamine. denies: Bath salts - positive for meth cocaine Lives with: Family Family History: Reviewed & Not Pertinent Renal/ Medical History: Denies: Hx Peritoneal Dialysis Psychiatric Medical History: Reports: Hx Schizophrenia - Immunizations Hx Diphtheria, Pertussis, Tetanus Vaccination: Yes Review of Systems - Review of Systems Constitutional: No symptoms reported EENT: No symptoms reported Cardiovascular: No symptoms reported Respiratory: No symptoms reported Gastrointestinal: No symptoms reported Genitourinary: No symptoms reported Female Genitourinary: No symptoms reported Musculoskeletal: No symptoms reported Skin: No symptoms reported Hematologic/Lymphatic: No symptoms reported Neurological/Psychological: No symptoms reported Physical Exam - Vital signs Vitals: Temp 97.7 F 03/05/20 22:46 Interpretation: Normal - General General appearance: Anxious - HEENT Head: Normocephalic, Atraumatic Eyes: Normal Pupils: PERRL Mouth/Lips: Normal Mucous membranes: Normal Pharynx: Normal Neck: Normal - Respiratory Respiratory status: No respiratory distress Chest status: Nontender Breath sounds: Normal Chest palpation: Normal - Cardiovascular Rhythm: Regular Heart sounds: Normal auscultation Murmur: No - Abdominal Inspection: Normal Distension: No distension Bowel sounds: Normal Tenderness: Nontender Organomegaly: No organomegaly - Rectal Hemorrhoids: Other - deferred - Genitourinary External exam: Other - deferred - Back Back: Normal - Extremities General upper extremity: Normal inspection General lower extremity: Normal inspection - Neurological Neuro grossly intact: Yes Cognition: Normal Orientation: AAOx4 Nick Coma Scale Eye Opening: Spontaneous Nick Coma Scale Verbal: Oriented Nick Coma Scale Motor: Obeys Commands Nick Coma Scale Total: 15 Speech: Normal Motor strength normal: LUE, RUE, LLE, RLE Sensory: Normal - Psychological Associated symptoms: Anxious - Skin Skin Temperature: Warm Skin Moisture: Dry Course - Vital Signs Vital signs: Temp Pulse Resp BP Pulse Ox 97.7 F 83 20 129/78 H 100 03/05/20 22:53 03/05/20 22:53 03/05/20 22:53 03/05/20 22:53 03/05/20 22:53 - Laboratory Result Diagrams: 03/05/20 23:31 03/05/20 23:31 Laboratory results interpreted by me: 03/05/20 03/05/20 23:31 23:31 Sodium 135.9 L AST 44 H ALT 43 H Urine Protein 30 H Ur Leukocyte Esterase MODERATE H Salicylates < 1.0 L Acetaminophen < 10 L - EKG Interpretation by [place] EKG shows normal: Sinus rhythm Rate: Normal Rhythm: NSR Critical Care Note - Critical Care Note Total time excluding time spent on procedures (mins): 90 Comments: Patient to be kept overnight for Dr. Villasenor behavioral health evaluation Discharge - Discharge Clinical Impression: Acute psychosis Condition: Good Disposition: PSYCH HOSP/UNIT
[2020-03-05 23:54] LABS: ABSOLUTE BASOPHILS # (AUTO) 0.1 10^3/uL (0.0-0.2); ABSOLUTE EOSINOPHILS # (AUTO) 0.1 10^3/uL (0.0-0.6); ABSOLUTE LYMPHOCYTES (AUTO) 1.6 10^3/uL (0.5-4.7); ABSOLUTE MONOCYTES (AUTO) 0.6 10^3/uL (0.1-1.4); ABSOLUTE NEUT (AUTO) 3.3 10^3/uL (1.7-8.2); BASOPHILS % (AUTO) 1.3 % (0-2); EOSINOPHILS % (AUTO) 1.6 % (0-6); HEMATOCRIT 36.2 % (36.0-47.0); HEMOGLOBIN 12.5 g/dL (12.0-15.5); LYMPHOCYTES % (AUTO) 28.6 % (13-45); MEAN CORPUSCULAR HEMOGLOBIN 29.1 pg (27.0-33.4); MEAN CORPUSCULAR HGB CONC 34.7 g/dL (32.0-36.0); MEAN CORPUSCULAR VOLUME 84 fl (80-97); MONOCYTES % (AUTO) 9.8 % (3-13); PLATELET COUNT 303 10^3/uL (150-450); RED CELL DISTRIBUTION WIDTH 13.5 % (11.5-14.0); SEGMENTED NEUTROPHILS % (AUTO) 58.7 % (42-78); TOTAL CELLS COUNTED % (AUTO) 100 %; WHITE BLOOD COUNT 5.7 10^3/uL (4.0-10.5)
[2020-03-05 23:59] LABS: ALBUMIN 4.6 g/dL (3.5-5.0); ALKALINE PHOSPHATASE 104 U/L (38-126); ANION GAP 6 (5-19); ASPARTATE AMINO TRANSFERASE 44 U/L (14-36); BILIRUBIN,TOTAL 0.8 mg/dL (0.2-1.3); BLOOD UREA NITROGEN 20 mg/dL (7-20); CALCIUM 9.6 mg/dL (8.4-10.2); CARBON DIOXIDE 29 mmol/L (22-30); CHLORIDE 101 mmol/L (98-107); GLUCOSE 105 mg/dL (75-110); POTASSIUM 3.7 mmol/L (3.6-5.0); TOTAL PROTEIN 7.7 g/dL (6.3-8.2)
[2020-03-06 00:02] LABS: APPEARANCE,URINE SLIGHTLY-CLOUDY; BILIRUBIN,URINE NEGATIVE (NEGATIVE); COLOR,URINE YELLOW; GLUCOSE, URINE NEGATIVE (NEGATIVE); KETONES,URINE NEGATIVE (NEGATIVE); LEUKOCYTE ESTERASE,URINE MODERATE (NEGATIVE); NITRITE,URINE NEGATIVE (NEGATIVE); PROTEIN,URINE 30 mg/dL (NEGATIVE); URINE SPECIFIC GRAVITY 1.028; UROBILINOGEN,URINE NEGATIVE mg/dL (<2.0)
[2020-03-06 00:06] LABS: ACETAMINOPHEN < 10 ug/mL (10-30); ALCOHOL < 10 mg/dL (NONE DETECTED); SALICYLATE < 1.0 mg/dL (2.0-20.0)
[2020-03-06 00:17] LABS: URINE BARBITURATES SCREEN NEGATIVE; URINE BENZODIAZEPINES SCREEN NEGATIVE; URINE COCAINE SCREEN NEGATIVE; URINE MARIJUANA (THC) SCREEN NEGATIVE; URINE METHADONE SCREEN NEGATIVE; URINE PHENCYCLIDINE SCREEN NEGATIVE
[2020-03-06 06:59] VITALS: BP 121/79
[2020-03-06] MEDS ORDERED: HYDROXYZINE PAMOATE 50 MG CAPSULE PO ONE (07:31)
--- NOTE | 2020-03-06 08:27 | ER Document Report ---
Doctor's Note Notes: 03/06/20 08:25 Patient's vital signs and previous labs, diagnostic images reviewed. Awaiting for mental health to assess pt. Reviewed nurse's notes and previous providers notes. VSS. urine culture pending due to noted leukoesterase in urine. Patient's urine drug screen was positive for methamphetamines. Patient does admit to use of marijuana crack cocaine and methamphetamine use. pt is in no distress at this time. Denies any SI or HI. General: A&Ox3. Answers questions appropriately. Heart: RRR Lungs: CTAB Psych: Flat affect A/P: Continue monitoring and rec's per MH. Normal diet Consider placement. 03/06/20 08:26
--- NOTE | 2020-03-06 19:36 | EKG REPORT ---
SEVERITY:- ABNORMAL ECG - SINUS RHYTHM CONSIDER LEFT VENTRICULAR HYPERTROPHY : Confirmed by: Benja Ulrich 06-Mar-2020 19:35:17
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
== END 2020-03-06 14:08 | disposition home or self-care (01) ==
LOC: ER 22:45
DX: R41.82 Altered mental status, unspecified (principal); F15.10 Other stimulant abuse, uncomplicated; F23 Brief psychotic disorder; F90.9 Attention-deficit hyperactivity disorder, unspecified type; F31.9 Bipolar disorder, unspecified; F42.9 Obsessive-compulsive disorder, unspecified; F17.210 Nicotine dependence, cigarettes, uncomplicated
CPT/HCPCS: 36415; 80053; 80307; 81001; 85025; 87086; 93005; 93010; 99291; 99292

== ENCOUNTER 2020-03-31 02:24 | Emergency (ER) | payer SELFPAY ==
[2020-03-31 03:42] LABS: ABSOLUTE BASOPHILS # (AUTO) 0.1 10^3/uL (0.0-0.2); ABSOLUTE LYMPHOCYTES (AUTO) 2.5 10^3/uL (0.5-4.7); ABSOLUTE MONOCYTES (AUTO) 0.8 10^3/uL (0.1-1.4); ABSOLUTE NEUT (AUTO) 5.6 10^3/uL (1.7-8.2); BASOPHILS % (AUTO) 0.8 % (0-2); EOSINOPHILS % (AUTO) 0.2 % (0-6); HEMATOCRIT 39.6 % (36.0-47.0); HEMOGLOBIN 13.7 g/dL (12.0-15.5); LYMPHOCYTES % (AUTO) 27.6 % (13-45); MEAN CORPUSCULAR HEMOGLOBIN 29.3 pg (27.0-33.4); MEAN CORPUSCULAR HGB CONC 34.5 g/dL (32.0-36.0); MEAN CORPUSCULAR VOLUME 85 fl (80-97); MONOCYTES % (AUTO) 9.2 % (3-13); PLATELET COUNT 315 10^3/uL (150-450); RED BLOOD COUNT 4.66 10^6/uL (3.72-5.28); RED CELL DISTRIBUTION WIDTH 13.7 % (11.5-14.0); SEGMENTED NEUTROPHILS % (AUTO) 62.2 % (42-78); TOTAL CELLS COUNTED % (AUTO) 100 %
[2020-03-31 03:44] LABS: APPEARANCE,URINE SLIGHTLY-CLOUDY; BILIRUBIN,URINE NEGATIVE (NEGATIVE); COLOR,URINE YELLOW; GLUCOSE, URINE NEGATIVE (NEGATIVE); KETONES,URINE TRACE mg/dL (NEGATIVE); LEUKOCYTE ESTERASE,URINE NEGATIVE (NEGATIVE); NITRITE,URINE NEGATIVE (NEGATIVE); PROTEIN,URINE 30 mg/dL (NEGATIVE); URINE SPECIFIC GRAVITY 1.021; UROBILINOGEN,URINE NEGATIVE mg/dL (<2.0)
[2020-03-31 03:52] LABS: ALKALINE PHOSPHATASE 108 U/L (38-126); ANION GAP 10 (5-19); ASPARTATE AMINO TRANSFERASE 57 U/L (14-36); BILIRUBIN,TOTAL 0.6 mg/dL (0.2-1.3); BLOOD UREA NITROGEN 21 mg/dL (7-20); CALCIUM 10.2 mg/dL (8.4-10.2); CARBON DIOXIDE 25 mmol/L (22-30); CHLORIDE 103 mmol/L (98-107); GLUCOSE 102 mg/dL (75-110); POTASSIUM 3.9 mmol/L (3.6-5.0); TOTAL PROTEIN 8.2 g/dL (6.3-8.2)
[2020-03-31 03:58] LABS: ACETAMINOPHEN < 10 ug/mL (10-30); ALCOHOL < 10 mg/dL (NONE DETECTED); SALICYLATE < 1.0 mg/dL (2.0-20.0)
[2020-03-31 04:02] LABS: URINE BARBITURATES SCREEN NEGATIVE; URINE BENZODIAZEPINES SCREEN NEGATIVE; URINE COCAINE SCREEN NEGATIVE; URINE MARIJUANA (THC) SCREEN NEGATIVE; URINE METHADONE SCREEN NEGATIVE; URINE PHENCYCLIDINE SCREEN NEGATIVE
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
[2020-03-31 15:21] VITALS: BP 120/67
--- NOTE | 2020-03-31 20:52 | EKG REPORT ---
SEVERITY:- NORMAL ECG - SINUS RHYTHM : Confirmed by: Benja Ulrich 31-Mar-2020 20:51:41
== END 2020-03-31 15:21 | disposition home or self-care (01) ==
LOC: ER 02:24
DX: F23 Brief psychotic disorder (principal); F19.10 Other psychoactive substance abuse, uncomplicated; F17.210 Nicotine dependence, cigarettes, uncomplicated; I10 Essential (primary) hypertension
CPT/HCPCS: 36415; 80053; 80307; 81001; 85025; 93005; 93010; 99284

== ENCOUNTER 2020-04-19 16:36 | Emergency (ER) | payer SELFPAY ==
--- NOTE | 2020-04-19 18:23 | EKG REPORT ---
SEVERITY:- NORMAL ECG - SINUS RHYTHM : Confirmed by: Kevin Griffin MD 19-Apr-2020 18:22:37
[2020-04-19 18:29] LABS: APPEARANCE,URINE CLOUDY; BILIRUBIN,URINE NEGATIVE (NEGATIVE); COLOR,URINE YELLOW; GLUCOSE, URINE NEGATIVE (NEGATIVE); KETONES,URINE TRACE mg/dL (NEGATIVE); LEUKOCYTE ESTERASE,URINE LARGE (NEGATIVE); NITRITE,URINE POSITIVE (NEGATIVE); PROTEIN,URINE 30 mg/dL (NEGATIVE); URINE BARBITURATES SCREEN NEGATIVE; URINE BENZODIAZEPINES SCREEN NEGATIVE; URINE COCAINE SCREEN NEGATIVE; URINE MARIJUANA (THC) SCREEN NEGATIVE; URINE METHADONE SCREEN NEGATIVE; URINE PHENCYCLIDINE SCREEN NEGATIVE; URINE SPECIFIC GRAVITY 1.018; UROBILINOGEN,URINE NEGATIVE mg/dL (<2.0)
[2020-04-19 18:37] LABS: ABSOLUTE BASOPHILS # (AUTO) 0.1 10^3/uL (0.0-0.2); ABSOLUTE EOSINOPHILS # (AUTO) 0.1 10^3/uL (0.0-0.6); ABSOLUTE LYMPHOCYTES (AUTO) 1.6 10^3/uL (0.5-4.7); ABSOLUTE MONOCYTES (AUTO) 0.5 10^3/uL (0.1-1.4); BASOPHILS % (AUTO) 1.2 % (0-2); EOSINOPHILS % (AUTO) 1.1 % (0-6); HEMOGLOBIN 12.6 g/dL (12.0-15.5); LYMPHOCYTES % (AUTO) 25.6 % (13-45); MEAN CORPUSCULAR HEMOGLOBIN 28.8 pg (27.0-33.4); MEAN CORPUSCULAR HGB CONC 34.1 g/dL (32.0-36.0); MEAN CORPUSCULAR VOLUME 84 fl (80-97); MONOCYTES % (AUTO) 8.4 % (3-13); PLATELET COUNT 319 10^3/uL (150-450); RED BLOOD COUNT 4.38 10^6/uL (3.72-5.28); RED CELL DISTRIBUTION WIDTH 13.6 % (11.5-14.0); SEGMENTED NEUTROPHILS % (AUTO) 63.7 % (42-78); TOTAL CELLS COUNTED % (AUTO) 100 %; WHITE BLOOD COUNT 6.2 10^3/uL (4.0-10.5)
[2020-04-19 18:56] LABS: ALBUMIN 4.5 g/dL (3.5-5.0); ALKALINE PHOSPHATASE 106 U/L (38-126); ANION GAP 7 (5-19); ASPARTATE AMINO TRANSFERASE 44 U/L (14-36); BILIRUBIN,TOTAL 0.5 mg/dL (0.2-1.3); BLOOD UREA NITROGEN 15 mg/dL (7-20); CALCIUM 9.4 mg/dL (8.4-10.2); CARBON DIOXIDE 27 mmol/L (22-30); CHLORIDE 104 mmol/L (98-107); GLUCOSE 96 mg/dL (75-110); POTASSIUM 3.8 mmol/L (3.6-5.0); TOTAL PROTEIN 7.5 g/dL (6.3-8.2)
[2020-04-19 18:58] LABS: ACETAMINOPHEN < 10 ug/mL (10-30); ALCOHOL < 10 mg/dL (NONE DETECTED); SALICYLATE < 1.0 mg/dL (2.0-20.0)
--- NOTE | 2020-04-19 20:05 | PSYCHOLOGICAL NOTE ---
Psych Note - Psych Note Date seen by psych provider: 04/19/20 Time seen by psych provider: 18:30 Psych Note: Reason for Consult: IVC Patient arrived to [facility] ED via [employer] under 24 petition for evaluation. Petition stated due to "running in and out of traffic, nearly being stuck by vehicles with no appreciation for the danger or safety risk to herself." Petition also stated patient is extremely paranoid; thinking someone is after them and hearing voices. [place] stated patient was running from [place] and the only reason they were caught was due to patient passing out. Patient denies any difficulties with believing people are after her. When asked why she was running from law enforcement she states she was not running. She states that she was "exercising... I was walking and jogging and crossing street." Patient confirms she used methamphetamines today. She reports that she had lost the resources provided to her previously to get into treatment. She would appreciate receiving resources again so she can "think about it." Patient is semi-alert and orientated to person, place, time and circumstance. Patient is very groggy from probable coming down from methamphetamine use. Patient is having difficulty with organized linear conversation. Patient has poor eye contact. Conversational speech is halting and very quiet. Patient denies suicidal and homicidal ideations. Currently patient is not demonstrating any behaviors of responding to internal stimuli or making any comments to indicate current paranoia. Intellectual abilities appear to be within the average range. Attention and concentration is fair to poor. Insight, judgment, impulse control is historically poor due to substance abuse. Clinician attempted to contact petitioner patient's father, Elias [phone]; unable to leave voicemail as voice male is full Chart review: This is the patient's 7th visit this year related to similar etiology; patient has had positive methamphetamine at every [facility] ED visit. On 03/31/2020 The patient was provided additional resources for healing transitions in the [facility] in addition to hope recovery homes in [facility] and the [facility] in the [facility]. On 03/06/2020 she was linked to [facility] voluntarily. On 02/27/2020 she was sent to [facility] as an IVC (had been her third visit in a month, noncompliance with Bipolar medication, continued methamphetamine use). On 02/19/2020 and 02/09/2020 she was discharged with resources for mental health outpatient and substance abuse treatment. On 12/13/2019 patient was linked to [facility] voluntarily. Clinical Presentation: coming down from methamphetamine ie groggy, loss of thoughts etc Diagnosis: Methamphetamine Intoxication with Use Disorder Severe Impression/Plan: Patient to [facility] ED under 24-hour petition for evaluation. Patient is currently very groggy and having difficulty following conversation; probable connection to coming down off of methamphetamine high. Patient has a long history of methamphetamine use. Clinician was unable to contact patient's father/petitioner. Do to concern that the patient can ambulate and is currently demonstrating continued effects from her meth use today, 24 petition will be continued. Patient can be rescinded and discharged once medically appropriate. Dr. Villasenor was consulted on the care and management of this patient; attending physician is in agreement with recommendations and disposition.
--- NOTE | 2020-04-19 20:12 | ER Document Report ---
ED General - General TRAVEL OUTSIDE OF THE [place] IN LAST 30 DAYS: No <RONIT HART - Last Filed: 04/19/20 20:06> <KEYONNA MCKEON - Last Filed: 04/20/20 10:58> <EDWIN RAMAN - Last Filed: 04/20/20 11:20> - General Chief Complaint: Psych Problem Stated Complaint: IVC W/ PAPERS Time Seen by Provider: 04/19/20 18:04 Primary Care Provider: [facility] [Outside] - Follow up as needed (Local voluntary detoxification.) [facility] [Outside] - Follow up as needed (Can walk in Tuesdays-Fridays 8:00AM-12:00PM (noon) to have general assessment and initiate services. ) [facility] [Outside] - Follow up as needed [facility] [Outside] - Follow up as needed (Can walk in Mondays-Fridays 8:00AM-4:30PM to have general assessment and initiate services. ) [facility] [Outside] - Follow up as needed - HPI Notes: Chief complaint: Psychiatric evaluation History of present illness: 49-year-old female well-known to this emergency department from multiple prior encounters transported here by law enforcement on IVC petition taken out by her parents because of erratic behavior felt to be related to drug abuse. Patient was recently seen in the emergency department for methamphetamine abuse and associated psychoses. Continue same. She apparently tried to evade the police ran into the street in front of traffic d uring the process. Limited history obtained from the patient at this time due to her drug intoxication. She denies any suicidal intent. She is currently denying auditory or visual hallucinations but I have trouble keeping her awake to carry on a two-sided conversation. (RONIT HART) - Related Data Allergies/Adverse Reactions: No Known Allergies Allergy (Unverified 05/25/19 17:10) Past Medical History - General Information source: Patient, Law Enforcement, [facility] Records - Social History Smoking Status: Current Some Day Smoker Drug Abuse: Methamphetamine Family History: Reviewed & Not Pertinent - Past Medical History Cardiac Medical History: Reports: Hx Hypertension Renal/ Medical History: Denies: Hx Peritoneal Dialysis Psychiatric Medical History: Reports: Hx Attention Deficit Hyperactivity Disorder, Hx Bipolar Disorder, Hx Depression, Hx Schizophrenia Past Surgical History: Reports: Hx Section - Immunizations Hx Diphtheria, Pertussis, Tetanus Vaccination: Yes <RONIT HART - Last Filed: 04/19/20 20:06> Review of Systems - Review of Systems -: Yes ROS unobtainable due to patient's medical condition <RONIT HART - Last Filed: 04/19/20 20:06> Physical Exam <RONIT HART - Last Filed: 04/19/20 20:06> - Vital signs Vitals: Temp Pulse Resp BP Pulse Ox 97.9 F 69 16 109/86 H 100 04/19/20 16:47 04/19/20 16:47 04/19/20 16:47 04/19/20 16:47 04/19/20 16:47 - Notes Notes: GENERAL: Emaciated appearing middle-aged female who is sleepy and has difficulty responding to questioning. SKIN: Pale. Good turgor no rashes. HEAD: Mild bitemporal wasting. Atraumatic. EYES: PERRLA. EOMI. Conjunctivae and sclerae clear. EARS: CANALS AND TMS CLEAR. NOSE: CLEAR. MOUTH: Moist mucosa. Poor dentition. No stridor or edema. No drooling. NECK: Supple. No masses or thyromegaly. No adenopathy. Carotids 2+ without bruits. No JVD. BACK: Symmetrical without tenderness. CHEST: Respirations unlabored. Breath sounds clear and symmetrical. HEART: Regular rhythm. No murmur gallop or rub. ABDOMEN: Soft nontender without masses, organomegaly or rebound. Bowel sounds normally active. No bruits. GENITALIA: Deferred. EXTREMITIES: No edema. No calf tenderness. Cap refill less than 1.5 seconds. Dorsalis pedis and posterior tibial pulses 3+ and symmetrical. NEUROLOGICAL: GCS 13. Opens eyes to verbal commands. Oriented to person and place but not to time. Follows simple commands to supervisor mold shop fingers. Mildly slurred speech. Cranial nerves II through XII intact. No gross sensorimotor deficit appreciated. PSYCHIATRIC: Very flat affect. (RONIT HART) Course - Laboratory Result Diagrams: 04/19/20 18:14 04/19/20 18:14 <RONIT HART - Last Filed: 04/19/20 20:06> - Laboratory Result Diagrams: 04/19/20 18:14 04/19/20 18:14 <KEYONNA MCKEON - Last Filed: 04/20/20 10:58> - Laboratory Result Diagrams: 04/19/20 18:14 04/19/20 18:14 <EDWIN RAMAN - Last Filed: 04/20/20 11:20> - Re-evaluation Re-evalutation: 04/19/20 20:12 Urine screen again today is positive for amphetamines. Chemistry profile remarkable for minimal elevation of transaminase values. CBC unremarkable. Alcohol is less than 10. Acetaminophen and salicylate are not elevated. Patient is to be evaluated by behavioral service and at this time I think we need to allow her to come down from amphetamines a bit to be able to perform a reasonable psychiatric evaluation and behavioral risk assessment accurately. She is clear from medical standpoint. (RONIT HART) - Vital Signs Vital signs: Temp Pulse Resp BP Pulse Ox 98.1 F 68 16 118/78 100 04/20/20 07:00 04/20/20 07:00 04/20/20 07:00 04/20/20 07:00 04/20/20 07:00 - Laboratory Laboratory results interpreted by me: 04/19/20 04/19/20 17:50 18:14 AST 44 H ALT 39 H Urine Protein 30 H Urine Ketones TRACE H Urine Blood MODERATE H Urine Nitrite POSITIVE H Ur Leukocyte Esterase LARGE H Salicylates < 1.0 L Acetaminophen < 10 L Discharge <RONIT HART - Last Filed: 04/19/20 20:06> <KEYONNA MCKEON - Last Filed: 04/20/20 10:58> <EDWIN RAMAN - Last Filed: 04/20/20 11:20> - Discharge Clinical Impression: Methamphetamine abuse, Psychosis, Delusions, Paranoia, Altered mental status Urinary tract infection Qualifiers: Urinary tract infection type: site unspecified Hematuria presence: with hematuria Qualified Code(s): N39.0 - Urinary tract infection, site not specified; R31.9 - Hematuria, unspecified Condition: Stable Disposition: HOME, SELF-CARE Instructions: Urinary Tract Infection ([facility]) Additional Instructions: You have been evaluated by both medical and behavioral health teams for psychosis (hallucinations, delusions, paranoia, erratic behavior, all felt to be a result of chronic methamphetamine use. You have been deemed appropriate for discharge. While in the emergency department you received the following services/or had access to: Medical screening and assessment, nursing services, dietary services, pharmacological services, one-on-one counseling and/or psycho therapy, environmental services, and continuous observation by a patient safety equipment testing specialist. Your urine shows findings consistent with a urinary tract infection. Please take all the antibiotics as directed even if your symptoms have improved. Please follow-up with your primary care physician as needed. Return to emergency room if you develop fever >101F, persistent vomiting, become lethargic, have severe pain in your sides, or any other symptoms that are concerning to you. AMPHETAMINE / METHAMPHETAMINE ABUSE: Amphetamines are addicting stimulants. Amphetamines overstimulate the nervous system and give a false feeling of power and mastery. These drugs may be obtained as prescription pills for weight loss, narcolepsy, or attention- deficit disorder. More often they're bought as an illegal street drug, methamphetamine (crank, crystal, speed). Using amphetamines repeatedly can lead to serious medical problems including malnutrition, severe depression, and paranoia. It can take increasing amounts to feel good. Eventually, there will be a "burn out." When you go off amphetamines there is a period of depression that may last for weeks or even months. High doses of amphetamines can cause seizures, confusion, hallucinations, delusions, high blood pressure, muscle damage, heart damage, or sudden . Many times these deadly complications occur even with "normal" doses. Injection of amphetamines is risky for developing abscesses, endocarditis (heart infection), pneumonia, and AIDS. Withdrawal from amphetamines often causes anxiety, depression, and drug cravings. Some users become paranoid and psychotic. There may be cramps, nausea, and vomiting. Many treatment programs are available, but you must make the decision to quit. Medication can be prescribed to control the symptoms of amphetamine toxicity (beta blockers or benzodiazepines). Withdrawal symptoms may require tranquilizers. Altered Mental Status An altered mental status is a change in the normal functioning of the brain. This alteration of function can range from minor decreased brain function with some forgetfulness and confusion to complete loss of consciousness and coma. There are many possible causes of an altered mental status and include brain injuries such as trauma or strokes, problems with oxygen supply to the brain, fever and infections of the brain and/or elsewhere in the body, metabolic abnormalities such as low or high blood sugar, overdoses or excessive medication ingestion, and mental and psychiatric illnesses. Sometimes the altered mental status resolves and a definite cause is not determined. If a cause for your altered mental status was found, it has likely been corrected. Your evaluation has not shown any condition that requires that you be admitted to the hospital. It is believed that you are safe to leave and return to your home. If you have a return of your symptoms, you should return for re-evaluation. Hallucinations You seem to be having hallucinations. Hallucinations are seeing, hearing, or feeling things that don't exist. These symptoms commonly occur with drug abuse and schizophrenia. Drugs like PCP, LSD, MDMA, peyote, and "psychedelic mushrooms" can cause frightening hallucinations. Users of methamphetamine or crack cocaine often see and feel bugs crawling on their skin. Patients with schizophrenia may hear voices that no one else can hear. The delusions of schizophrenia often involve conspiracies or relationships that are not real. When symptoms are due to drug abuse, the mental state usually improves as the drug wears off. Someone you trust should be with you until you are better, to protect you and calm your fears. Tranquilizer medicine is helpful at controlling hallucinations, anxiety, and deluded thoughts. Get a proper diet and enough sleep. Most patients do very well when they get proper medical treatment and social support. You should return at once if your symptoms get worse, if you are having suicidal thoughts or thoughts about hurting others, or if you feel that you are in danger. FOLLOW-UP CARE: You have been provided both the outpatient substance abuse resource sheet which lists both mobile crisis numbers for assistance with voluntary detoxification/treatment as well as the 6 detoxification facilities with emphasis on [facility] since it is local, and the local outpatient mental health resource sheet which documented walk in times for both [facility] and [facility] so that you can initiate professional care/treatment/support for dual diagnosis treatment (mental health and substance abuse, group counseling/individual counseling/medication management). You are recommended to go to voluntary detoxification and then follow up outpatient for ongoing services and support. If you experience worsening or a significant change in your symptoms notify your physician immediately, utilize mobile crisis or return to the Emergency Department at any time for re-evaluation. Prescriptions: Cephalexin [Keflex] 500 mg PO BID #14 capsule Referrals: [facility] [Outside] - Follow up as needed [facility] [Outside] - Follow up as needed [facility] [Outside] - Follow up as needed (Local voluntary detoxification.) [facility] [Outside] - Follow up as needed (Can walk in Mondays-Fridays 8:00AM-4:30PM to have general assessment and initiate services. ) [facility] [Outside] - Follow up as needed (Can walk in Tuesdays-Fridays 8:00AM-12:00PM (noon) to have general assessment and initiate services. )
[2020-04-20] MEDS ORDERED: CEPHALEXIN 500 MG CAPSULE PO ONE (11:02)
[2020-04-20] MEDS ORDERED: LIDOCAINE 1% INJ-PF (10 MG/ML) 30 ML SDV INJ ONE (11:08)
--- NOTE | 2020-04-20 11:08 | ER Document Report ---
Doctor's Note Notes: 04/20/20 11:02 PHYSICAL EXAMINATION: GENERAL: Appears well, healthy, well-nourished, no acute distress. LUNGS: Equal breath sounds bilaterally and clear to auscultation. No wheezes rales or rhonchi. CARDIOVASCULAR: S1-S2, regular rate, regular rhythm. Radial pulses 2+, normal. ABDOMEN: Normoactive bowel sounds. Soft, moderately tender mid lower abdomen, no guarding, no rebound tenderness, and no masses palpated. PSYCH: Normal mood, normal affect. On assessment, the patient's abdomen was moderately tender. Reviewed labs and she had a large amount of leukocytes in her urine. I asked her if she has any urinary symptoms and she states that she does have some dysuria. We will treat her for a urinary tract infection with a gram of Rocephin and Keflex. [facility] has evaluated her and has cleared her to follow-up with [facility] on her own basis. Patient is in agreement with this plan. Follow-up precautions were given. Verbal discharge instructions were given to the patient. They verbalized understanding. They are stable for discharge.
[2020-04-20] MEDS ORDERED: CEFTRIAXONE INJ 1000 MG VIAL IM ONE (11:09)
[2020-04-20 11:27] VITALS: BP 112/75
--- NOTE | 2020-04-20 11:49 | PSYCHOLOGICAL NOTE ---
Psych Note - Psych Note Date seen by psych provider: 04/20/20 Time seen by psych provider: 10:41 - [id number] re evaluation with patient. 1114 tried calling patient's father/IVC Petitioner. 1117 interaction with patient again. Psych Note: Patient is a 49 year old female who presented to the Emergency Department yesterday evening via [employer], petitioned for IVC by her father for erratic behavior (running in and out of traffic without regard for safety), delusional and paranoia (thinking people were after her) and having hallucinations. Urine Drug Screen positive for methamphetamine and patient as a chronic history of use. She has been seen in the Emergency Department numerous times for methamphetamine abuse and related issues, been offered direct linkage to [facility] for voluntary detoxification and been provided other resources for other detoxification facilities, mobile crisis numbers and local agencies for ongoing outpatient treatment and professional support. She was held overnight due to level of psychosis and to allow for sobering up. Today patient was sleeping. She acted as thought she did not want to wake up but with constantly saying her name and asking questions she did provide answers. She stated she wanted help with her drug use. Patient denied suicidal and homicidal ideation. Attending Nurse noted patient had been up, used the bathroom, at breakfast and talked with the medical provider already. She stated she is not sure why patient won't wake up and engage with this clinician. At 1114 tried calling patient's father Elias Spence ([phone]) who was IVC petitioner. Called twice. Went straight to voice mail and voice mail box full. At 1115 Attending Nurse noted patient did not want to take the shot ordered for Urinary Tract Infection. Medical Provider said she would have a talk with patient. This clinician went to provide patient the outpatient mental health and substance abuse resource sheets for follow up treatment options and recommendation to go to detoxification. She presented irritable. She said she would take the pill but did not want the shot for Urinary Tract Infection. She was made aware the shot helps to work faster and more effectively. She finally agreed to both the shot and the pill for her medical treatment. This Clinician noted could assist with linkage to [facility] but she was also provided their information and could call or walk over. She commented "I'm not leaving until after lunch, I'm ill right now." She did not present with any acute illness per medical staff and was being treated for the Urinary Tract Infection. Patient was alert and oriented to self, person, place, and situation. Mood was irritable with congruent affect (expected since sober from methamphetamine use). She denied current suicidal and homicidal ideation. Patient did not appear to be responding to internal stimuli as evidenced by fair eye contact and answering questions appropriately when addressed. Thought processes were linear. Conversational speech was within quick in rate but otherwise within normal limits. Intellectual abilities are estimated to be average. Insight, judgment and impulse control were fair as evidenced by no longer being under the influence of methamphetamine. 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 Recommenda tion to [facility] IVC patient came in on from [employer]/Petitioned by father. Patient has had a chance to sober up from methamphetamine intoxication. She denied suicidal and homicidal ideation which were never a presenting problem. Her thoughts were more linear. She was irritable which is expected from sobering up. Tried calling father/IVC Petitioner to make him aware of discharge at the very least but went right to voice mail and voice mail box full. Provided patient with the Substance Abuse Resource sheet which highlighted both mobile crisis numbers and documented either would assist with voluntary detoxification/treatment, it numbers the 6 detox facilities, and it highlighted [facility] with documentation that it is local/the phone number/the address and that she could walk in/call them/or use mobile crisis. Consulted with Dr. Villasenor regarding the management and care of patient. ED Physician in agreement with recommendations.
== END 2020-04-20 13:00 | disposition home or self-care (01) ==
LOC: ER 16:36
DX: Z04.6 Encounter for general psychiatric examination, requested by authority (principal); F15.150 Other stimulant abuse with stimulant-induced psychotic disorder with delusions; F15.129 Other stimulant abuse with intoxication, unspecified; N39.0 Urinary tract infection, site not specified; R31.9 Hematuria, unspecified; R10.819 Abdominal tenderness, unspecified site; R30.0 Dysuria; I10 Essential (primary) hypertension; F17.200 Nicotine dependence, unspecified, uncomplicated
CPT/HCPCS: 93005; 99285; 96372; 36415; 87086; 80307 ×4; 85025; 87088; 80053; 81001; 87186; 93010; J3490; J0696

== ENCOUNTER 2020-06-25 15:27 | Emergency (ER) | payer SELFPAY ==
[2020-06-25] MEDS ORDERED: CHLORPROMAZINE HCL INJ 25 MG/1 ML AMPULE IM STA (15:34)
[2020-06-25] MEDS ORDERED: BENZTROPINE MESYLATE INJ 2 MG/2 ML AMPULE IM STA (15:35)
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
[2020-06-25 16:20] LABS: ABSOLUTE BASOPHILS # (AUTO) 0.1 10^3/uL (0.0-0.2); ABSOLUTE LYMPHOCYTES (AUTO) 1.7 10^3/uL (0.5-4.7); ABSOLUTE MONOCYTES (AUTO) 0.6 10^3/uL (0.1-1.4); ABSOLUTE NEUT (AUTO) 6.3 10^3/uL (1.7-8.2); BASOPHILS % (AUTO) 0.9 % (0-2); EOSINOPHILS % (AUTO) 0.2 % (0-6); HEMATOCRIT 33.6 % (36.0-47.0); HEMOGLOBIN 11.7 g/dL (12.0-15.5); LYMPHOCYTES % (AUTO) 19.6 % (13-45); MEAN CORPUSCULAR HGB CONC 34.8 g/dL (32.0-36.0); MEAN CORPUSCULAR VOLUME 84 fl (80-97); MONOCYTES % (AUTO) 7.2 % (3-13); PLATELET COUNT 347 10^3/uL (150-450); RED BLOOD COUNT 4.02 10^6/uL (3.72-5.28); RED CELL DISTRIBUTION WIDTH 14.1 % (11.5-14.0); SEGMENTED NEUTROPHILS % (AUTO) 72.1 % (42-78); TOTAL CELLS COUNTED % (AUTO) 100 %; WHITE BLOOD COUNT 8.8 10^3/uL (4.0-10.5)
[2020-06-25 16:22] LABS: APPEARANCE,URINE SLIGHTLY-CLOUDY; BILIRUBIN,URINE NEGATIVE (NEGATIVE); CALCIUM OXALATE CRYSTALS,URINE RARE /HPF; COLOR,URINE YELLOW; GLUCOSE, URINE NEGATIVE (NEGATIVE); KETONES,URINE TRACE mg/dL (NEGATIVE); LEUKOCYTE ESTERASE,URINE NEGATIVE (NEGATIVE); NITRITE,URINE NEGATIVE (NEGATIVE); PROTEIN,URINE 30 mg/dL (NEGATIVE); URINE SPECIFIC GRAVITY 1.021
[2020-06-25 16:39] LABS: URINE BARBITURATES SCREEN NEGATIVE; URINE BENZODIAZEPINES SCREEN NEGATIVE; URINE COCAINE SCREEN NEGATIVE; URINE MARIJUANA (THC) SCREEN NEGATIVE; URINE METHADONE SCREEN NEGATIVE; URINE PHENCYCLIDINE SCREEN NEGATIVE
[2020-06-25 16:40] LABS: ALBUMIN 4.2 g/dL (3.5-5.0); ALKALINE PHOSPHATASE 100 U/L (38-126); ANION GAP 6 (5-19); ASPARTATE AMINO TRANSFERASE 46 U/L (14-36); BILIRUBIN,DIRECT 0.2 mg/dL (0.0-0.4); BILIRUBIN,TOTAL 0.6 mg/dL (0.2-1.3); BLOOD UREA NITROGEN 17 mg/dL (7-20); CALCIUM 9.5 mg/dL (8.4-10.2); CARBON DIOXIDE 26 mmol/L (22-30); CHLORIDE 109 mmol/L (98-107); GLUCOSE 104 mg/dL (75-110); POTASSIUM 4.8 mmol/L (3.6-5.0); TOTAL PROTEIN 6.6 g/dL (6.3-8.2)
[2020-06-25 16:47] LABS: ACETAMINOPHEN < 10 ug/mL (10-30); ALCOHOL < 10 mg/dL (NONE DETECTED); SALICYLATE < 1.0 mg/dL (2.0-20.0)
--- NOTE | 2020-06-26 08:26 | EKG REPORT ---
SEVERITY:- BORDERLINE ECG - SINUS RHYTHM BORDERLINE T ABNORMALITIES, ANT-LAT LEADS : Confirmed by: Collette Cardoza MD 26-Jun-2020 08:25:44
--- NOTE | 2020-06-26 13:30 | ER Document Report ---
Doctor's Note Notes: 06/26/20 13:29 Patient's chart was reviewed. Patient has been seen multiple times for methamphetamine overdose. She is resting quietly in the room. Has been up to shower this morning. No distress. Awaiting psychiatric evaluation, recommendations for plan of care and medications
[2020-06-26 19:16] VITALS: BP 106/64
--- NOTE | 2020-06-28 17:41 | PSYCHOLOGICAL NOTE ---
Psych Note - Psych Note Date seen by psych provider: 06/25/20 Time seen by psych provider: 15:30 - Observed patient when she was brought in by [facility], then sitting in chair outside room waiting for bed/room to finish being cleaned. Psych Note: Patient is a 50 year old female who presented to the Emergency Department late afternoon via [facility], petitioned for Involuntary Commitment by [facility] for walking into traffic, talking to herself, paranoia, not making sense, with history of Bipolar and noncompliance with medication/treatment. Patient is well known to the Emergency Department and the [facility] Behavioral Health team. She has consistently been positive for methamphetamine on previous visits. Observed patient walking in with law enforcement. She had small twitches. She presented with psychomotor agitation, pressured speech, could not seem to be able to retrieve words or get them out, and had tangential thinking. 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 Pauline LOZANO, includes: Thorazine 50MG Intramuscular or by mouth once now Cogentin 1MG Intramuscular or by mouth once now Impression/Plan: Recommendation to keep Involuntary Commitment Petition patient came in on. She presented manic like and unable to engage in evaluation. She was medicated to aid in coming down off methamphetamine. Will evaluate patient in the morning after she is more sober. Consulted with Dr. Villasenor regarding the management and care of patient. ED Physician in agreement with recommendations.
--- NOTE | 2020-06-28 17:53 | PSYCHOLOGICAL NOTE ---
Psych Note - Psych Note Date seen by psych provider: 06/26/20 Time seen by psych provider: 13:05 - Evaluation with patient from [id number]. 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 Yesterday she presented manic (pressured speech, psychomotor agitation, tangential thinking, unable to retrieve words and talk in complete sentences), required medication for stabilization so unable to evaluate. Patient reported "I feel okay." She stated she was not running in and out of traffic. Urine Drug Screen was positive for methamphetamine and typically is. She did not deny use and stated "it is on and off." She stated "I do want help but..." and kept saying that. She stated she had been to [facility] previously. She was better at retrieving words and making complete sentences but still had difficulty. She presented hypomanic versus manic. She had poor eye contact, speech was fast in rate but not as pressured, thought were more complete and less tangential. Patient has been seen multiple times this year for similar etiology, has been provided linkage and resources to [facility] and [facility] but does not follow through. At 1510 called [facility]. Spoke to Yumiko Shannon. Have bed availability. They confirmed patient has been to their facility in the past but checks out AMA. 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 Patient has been seen numerous time in the emergency department for similar etiology, each time is positive for methamphetamine, thus far has not followed up with recommendation for voluntary detoxification at [facility] or outpatient follow up at [facility], and today was maybe pre-contemplative if even regarding treatment. Consulted with Dr. Villasenor regarding the management and care of patient. ED Physician in agreement with recommendations.
== END 2020-06-26 19:36 | disposition other institution (70) ==
LOC: ER 15:27
DX: Z04.6 Encounter for general psychiatric examination, requested by authority (principal); F19.959 Other psychoactive substance use, unspecified with psychoactive substance-induced psychotic disorder, unspecified; F15.129 Other stimulant abuse with intoxication, unspecified; F20.9 Schizophrenia, unspecified; I10 Essential (primary) hypertension; F41.9 Anxiety disorder, unspecified; F17.200 Nicotine dependence, unspecified, uncomplicated
CPT/HCPCS: 93005; 99284; 96372; 36415; 80307 ×4; 85025; 80053; 81001; 93010; J0515; J3230

== ENCOUNTER 2020-08-04 10:29 | Emergency (ER) | payer SELFPAY ==
--- NOTE | 2020-08-04 10:55 | ER Document Report ---
ED General - General TRAVEL OUTSIDE OF THE [place] IN LAST 30 DAYS: No <RONIT HART - Last Filed: 08/04/20 11:00> <MIKE MACHUCA - Last Filed: 08/05/20 13:00> - General Stated Complaint: PSYCH EVAL Time Seen by Provider: 08/04/20 10:38 - HPI Notes: Chief complaint: Altered mental status/acute delirium History of present illness: 50-year-old female transported here via EMS after they were called to private residence by the patient's mother who noted that kasia meadows was agitated and exhibiting violent behavior. This lady has a known history of bipolar disorder and is notoriously noncompliant with medications. She also has a history of methamphetamine abuse. Review of records shows she was previously on IVC status here about 6 weeks ago. Mother advised EMS that patient had been out "partying" with her friends last night and this morning she became extremely agitated and was throwing furniture in the house and screaming. EMS observed similar behavior upon their arrival. They administered IV ketamine. During transport patient became agitated and they gave additional Versed IM. Patient is now sedated and is unable to relate her own history. I have reviewed extensive old records from this facility. (RONIT HART) - Related Data Allergies/Adverse Reactions: No Known Allergies Allergy (Unverified 05/25/19 17:10) Past Medical History - General Information source: Emergency Med Personnel, [facility] Records Cannot obtain history due to: Altered mental status - Social History Smoking Status: Unknown if Ever Smoked Frequency of alcohol use: Occasional Drug Abuse: Methamphetamine Lives with: Family Family History: Reviewed & Not Pertinent - Past Medical History Cardiac Medical History: Reports: Hx Hypertension Renal/ Medical History: Denies: Hx Peritoneal Dialysis Psychiatric Medical History: Reports: Hx Attention Deficit Hyperactivity Disorder, Hx Bipolar Disorder, Hx Depression, Hx Schizophrenia Past Surgical History: Reports: Hx Section - Immunizations Hx Diphtheria, Pertussis, Tetanus Vaccination: Yes <RONIT HART - Last Filed: 08/04/20 11:00> Review of Systems - Review of Systems -: Yes ROS unobtainable due to patient's medical condition <RONIT HART - Last Filed: 08/04/20 11:00> Physical Exam <RONIT HART - Last Filed: 08/04/20 11:00> - Vital signs Vitals: BP Pulse Ox 120/87 H 100 08/04/20 10:33 08/04/20 10:33 GENERAL: Slender middle-age female who is deeply sedated. SKIN: Pale and cool. Dry. Good turgor no rashes. HEAD: Normocephalic atraumatic. EYES: Eyes are closed. Pupils are pinpoint equal and sluggishly reactive. Gaze is conjugate conjunctivae and sclerae clear. EARS: CANALS AND TMS CLEAR. NOSE: CLEAR. MOUTH: Moist mucosa. Good dentition. No stridor or edema. No drooling. Throat: Gag reflex intact. NECK: Supple. No masses or thyromegaly. No adenopathy. Carotids 2+ without bruits. No JVD. BACK: Symmetrical without tenderness. CHEST: Respirations unlabored. Breath sounds clear and symmetrical. HEART: Regular rhythm. No murmur gallop or rub. ABDOMEN: Soft nontender without masses, organomegaly or rebound. Bowel sounds normally active. No bruits. GENITALIA: Normal female. EXTREMITIES: No edema. No calf tenderness. Cap refill less than 1.5 seconds. Dorsalis pedis and posterior tibial pulses 3+ and symmetrical. NEUROLOGICAL: GCS 9. Eyes open to pain (3). Patient localizes pain (4). Patient moves all 4 extremities symmetrically in response to painful stimuli. Patient make slight moaning sounds (2). (RONIT HART) Course <RONIT HART - Last Filed: 08/04/20 11:00> - Laboratory Result Diagrams: 08/04/20 10:55 08/04/20 10:55 <MIKE MACHUCA - Last Filed: 08/05/20 13:00> - Vital Signs Vital signs: Temp Pulse Resp BP Pulse Ox 97.5 F 74 18 111/75 100 08/05/20 09:00 08/05/20 09:00 08/05/20 09:00 08/05/20 09:00 08/05/20 09:00 - Laboratory Laboratory results interpreted by me: 08/04/20 08/04/20 10:55 10:55 Hgb 11.5 L Hct 33.0 L RDW 14.5 H AST 39 H Total Protein 5.9 L Albumin 3.4 L Salicylates < 1.0 L Acetaminophen < 10 L - EKG Interpretation by Me Additional EKG results interpreted by me: 08/04/20 11:00 Twelve-lead EKG reviewed by me contemporaneously: 1057 hrs. Indication for study: Altered mental status Rhythm: Normal sinus Rate: 70 Intervals: Normal QRS axis: +[address]/T wave changes: None Comparison with prior tracing: Unchanged compared with prior tracing 06/25/2020 Interpretation: Normal EKG (RONIT HART) Discharge <RONIT HART - Last Filed: 08/04/20 11:00> <MIKE MACHUCA - Last Filed: 08/05/20 13:00> - Discharge Clinical Impression: Substance abuse Condition: Stable Disposition: HOME, SELF-CARE Additional Instructions: You have been evaluated by both medical and behavioral health teams and been deemed appropriate for discharge. You are encouraged to follow through with substance abuse treatment and have been provided resource list of detox facilities, local providers and [facility]. You have identified possibly going voluntarily to [facility]; you are encouraged to follow through with this plan. AMPHETAMINE / METHAMPHETAMINE ABUSE: Amphetamines are addicting stimulants. Amphetamines overstimulate the nervous system and give a false feeling of power and mastery. These drugs may be obtained as prescription pills for weight loss, narcolepsy, or attention-deficit disorder. More often they're bought as an illegal street drug, methamphetamine (crank, crystal, speed). Using amphetamines repeatedly can lead to serious medical problems including malnutrition, severe depression, and paranoia. It can take increasing amounts to feel good. Eventually, there will be a "burn out." When you go off amphetamines there is a period of depression that may last for weeks or even months. High doses of amphetamines can cause seizures, confusion, hallucinations, delusions, high blood pressure, muscle damage, heart damage, or sudden . Many times these deadly complications occur even with "normal" doses. Injection of amphetamines is risky for developing abscesses, endocarditis (heart infection), pneumonia, and AIDS. Withdrawal from amphetamines often causes anxiety, depression, and drug cravings. Some users become paranoid and psychotic. There may be cramps, nausea, and vomiting. Many treatment programs are available, but you must make the decision to quit. Medication can be prescribed to control the symptoms of amphetamine toxicity (beta blockers or benzodiazepines). Withdrawal symptoms may require tranquilizers. FOLLOW-UP CARE: If you have been referred to a physician for follow-up care, call the physicians office for an appointment as you were instructed or within the next two days. If you experience worsening or a significant change in your symptoms, notify the physician immediately or return to the Emergency Department at any time for re-evaluation. Referrals: [facility] [Outside] - Follow up as needed [facility] [Outside] - Follow up as needed
[2020-08-04 11:28] LABS: ABSOLUTE LYMPHOCYTES (AUTO) 0.8 10^3/uL (0.5-4.7); ABSOLUTE MONOCYTES (AUTO) 0.3 10^3/uL (0.1-1.4); ABSOLUTE NEUT (AUTO) 3.3 10^3/uL (1.7-8.2); BASOPHILS % (AUTO) 0.9 % (0-2); HEMOGLOBIN 11.5 g/dL (12.0-15.5); LYMPHOCYTES % (AUTO) 17.7 % (13-45); MEAN CORPUSCULAR HEMOGLOBIN 29.6 pg (27.0-33.4); MEAN CORPUSCULAR HGB CONC 34.9 g/dL (32.0-36.0); MEAN CORPUSCULAR VOLUME 85 fl (80-97); MONOCYTES % (AUTO) 7.2 % (3-13); PLATELET COUNT 224 10^3/uL (150-450); RED BLOOD COUNT 3.89 10^6/uL (3.72-5.28); RED CELL DISTRIBUTION WIDTH 14.5 % (11.5-14.0); SEGMENTED NEUTROPHILS % (AUTO) 73.2 % (42-78); TOTAL CELLS COUNTED % (AUTO) 100 %; WHITE BLOOD COUNT 4.5 10^3/uL (4.0-10.5)
--- NOTE | 2020-08-04 11:30 | RADIOLOGY REPORT (SQ) ---
EXAM DESCRIPTION: CHEST SINGLE VIEW IMAGES COMPLETED DATE/TIME: 08/04/2020 11:16 am REASON FOR STUDY: AMS COMPARISON: None. EXAM PARAMETERS: NUMBER OF VIEWS: One view. TECHNIQUE: Single frontal radiographic view of the chest acquired. RADIATION DOSE: NA LIMITATIONS: None. FINDINGS: LUNGS AND PLEURA: No opacities, masses or pneumothorax. No pleural effusion. MEDIASTINUM AND HILAR STRUCTURES: No masses. Contour normal. HEART AND VASCULAR STRUCTURES: Heart normal in size. Normal vasculature. BONES: No acute findings. HARDWARE: None in the chest. OTHER: No other significant finding. IMPRESSION: NO ACUTE RADIOGRAPHIC FINDING IN THE CHEST. TECHNICAL DOCUMENTATION: JOB ID: [id number] 2010 [employer]- All Rights Reserved Reading location - IP/workstation name: [email or web address]
[2020-08-04 11:48] LABS: APPEARANCE,URINE SLIGHTLY-CLOUDY; BILIRUBIN,URINE NEGATIVE (NEGATIVE); COLOR,URINE YELLOW; GLUCOSE, URINE NEGATIVE (NEGATIVE); KETONES,URINE NEGATIVE (NEGATIVE); LEUKOCYTE ESTERASE,URINE NEGATIVE (NEGATIVE); NITRITE,URINE NEGATIVE (NEGATIVE); PROTEIN,URINE NEGATIVE (NEGATIVE); URINE SPECIFIC GRAVITY 1.015; UROBILINOGEN,URINE NEGATIVE mg/dL (<2.0)
[2020-08-04 11:49] LABS: ALBUMIN 3.4 g/dL (3.5-5.0); ALKALINE PHOSPHATASE 71 U/L (38-126); ANION GAP 9 (5-19); ASPARTATE AMINO TRANSFERASE 39 U/L (14-36); BILIRUBIN,TOTAL 0.4 mg/dL (0.2-1.3); BLOOD UREA NITROGEN 12 mg/dL (7-20); CALCIUM 8.8 mg/dL (8.4-10.2); CARBON DIOXIDE 24 mmol/L (22-30); CHLORIDE 105 mmol/L (98-107); GLUCOSE 94 mg/dL (75-110); POTASSIUM 3.6 mmol/L (3.6-5.0); TOTAL PROTEIN 5.9 g/dL (6.3-8.2)
[2020-08-04 11:51] LABS: ACETAMINOPHEN < 10 ug/mL (10-30); ALCOHOL < 10 mg/dL (NONE DETECTED); SALICYLATE < 1.0 mg/dL (2.0-20.0)
[2020-08-04 11:59] LABS: URINE BARBITURATES SCREEN NEGATIVE; URINE BENZODIAZEPINES SCREEN NEGATIVE; URINE COCAINE SCREEN NEGATIVE; URINE MARIJUANA (THC) SCREEN NEGATIVE; URINE METHADONE SCREEN NEGATIVE; URINE PHENCYCLIDINE SCREEN NEGATIVE
[2020-08-04] MEDS ORDERED: CHLORPROMAZINE HCL INJ 25 MG/1 ML AMPULE IV PRN (17:21)
[2020-08-04] MEDS ORDERED: BENZTROPINE MESYLATE INJ 2 MG/2 ML AMPULE IM PRN (17:24)
--- NOTE | 2020-08-04 17:37 | EKG REPORT ---
SEVERITY:- NORMAL ECG - SINUS RHYTHM : Confirmed by: Saul Avendano MD 04-Aug-2020 17:36:10
--- NOTE | 2020-08-04 18:18 | PSYCHOLOGICAL NOTE ---
Psych Note - Psych Note Date seen by psych provider: 08/04/20 Psych Note: Patient presents to ER via EMS. EMS reports being called to patient's home, where she lives with mother, due to AMS. Mother reported patient was out with friends last night, came home, belligerent, altered, but went to sleep. Reports upon waking this morning patient presented with worsening presentation. Chart review: This is the patient's 8th visit this year related to similar etiology; patient has had positive methamphetamine at every [facility] ED visit. On 06/25/2020 Patient was sent to [facility] as an IVC for substance abuse On 04/19/2020 Provided patient with the Substance Abuse Resource sheet which h ighlighted both mobile crisis numbers and documented either would assist with voluntary detoxification/treatment, it numbers the 6 detox facilities, and it highlighted [facility] with documentation that it is local/the phone number/the address and that she could walk in/call them/or use mobile crisis. On 03/31/2020 The patient was provided additional resources for healing transitions in the [facility] in addition to [facility] in [facility] and the [facility] in the [facility]. On 03/06/2020 she was linked to [facility] voluntarily. On 02/27/2020 she was sent to [facility] as an IVC (had been her third visit in a month, noncompliance with Bipolar medication, continued methamphetamine use). On 02/19/2020 and 02/09/2020 she was discharged with resources for mental health outpatient and substance abuse treatment. On 12/13/2019 patient was linked to [facility] voluntarily. Clinical Presentation: coming down from methamphetamine ie groggy, loss of thoughts, slurring words etc Diagnosis: Methamphetamine Intoxication with Use Disorder Severe Medication recommendations per [facility]'s contracted psychiatrist are as follows Thorazine 50mg every 8 hours as needed Cogentin 1mg daily if need to you Thorazine Impression/Plan: Patient to [facility] ED under 24-hour petition for evaluation; paperwork is signed an placed in patient's chart. This has been done due to concern that the patient is currently demonstrating continued effects from her meth use. Patient can be rescinded and discharged once medically appropriate. Dr. Villasenor was consulted on the care and management of this patient; attending physician is in agreement with recommendations and disposition.
[2020-08-05] MEDS ORDERED: ACETAMINOPHEN 325 MG TABLET PO ONE (08:11)
[2020-08-05 09:38] VITALS: BP 111/75
--- NOTE | 2020-08-05 14:00 | ER Document Report ---
Doctor's Note Notes: 08/05/20 13:59 Patient resting company on stretcher. I did give the patient Tylenol earlier for a headache which she did states improved significantly. Patient no acute distress, denies pain questions or concerns. Patient was seen by mental health and deemed appropriate for discharge. Patient denies suicidal homicidal ideation. Patient is calm and cooperative.
== END 2020-08-05 14:12 | disposition home or self-care (01) ==
LOC: ER 10:29
DX: F15.129 Other stimulant abuse with intoxication, unspecified (principal); R51.9 Headache, unspecified; R45.6 Violent behavior; I10 Essential (primary) hypertension
CPT/HCPCS: 93005; 99285; 36415; 80307 ×5; 85025; 80053; 81001; 71045; 93010; G0480

== ENCOUNTER 2020-10-11 21:34 | Emergency (ER) | payer SELFPAY ==
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
[2020-10-11 23:03] LABS: ABSOLUTE BASOPHILS # (AUTO) 0.1 10^3/uL (0.0-0.2); ABSOLUTE EOSINOPHILS # (AUTO) 0.1 10^3/uL (0.0-0.6); ABSOLUTE LYMPHOCYTES (AUTO) 1.6 10^3/uL (0.5-4.7); ABSOLUTE MONOCYTES (AUTO) 0.6 10^3/uL (0.1-1.4); ABSOLUTE NEUT (AUTO) 6.1 10^3/uL (1.7-8.2); BASOPHILS % (AUTO) 0.9 % (0-2); EOSINOPHILS % (AUTO) 0.9 % (0-6); HEMATOCRIT 36.6 % (36.0-47.0); HEMOGLOBIN 12.6 g/dL (12.0-15.5); LYMPHOCYTES % (AUTO) 18.5 % (13-45); MEAN CORPUSCULAR HEMOGLOBIN 28.2 pg (27.0-33.4); MEAN CORPUSCULAR HGB CONC 34.4 g/dL (32.0-36.0); MEAN CORPUSCULAR VOLUME 82 fl (80-97); MONOCYTES % (AUTO) 7.2 % (3-13); PLATELET COUNT 289 10^3/uL (150-450); RED BLOOD COUNT 4.46 10^6/uL (3.72-5.28); RED CELL DISTRIBUTION WIDTH 13.5 % (11.5-14.0); SEGMENTED NEUTROPHILS % (AUTO) 72.5 % (42-78); TOTAL CELLS COUNTED % (AUTO) 100 %; WHITE BLOOD COUNT 8.4 10^3/uL (4.0-10.5)
[2020-10-11 23:19] LABS: ALBUMIN 4.2 g/dL (3.5-5.0); ALKALINE PHOSPHATASE 135 U/L (38-126); ANION GAP 5 (5-19); ASPARTATE AMINO TRANSFERASE 57 U/L (14-36); BILIRUBIN,DIRECT 0.1 mg/dL (0.0-0.4); BILIRUBIN,TOTAL 0.3 mg/dL (0.2-1.3); BLOOD UREA NITROGEN 12 mg/dL (7-20); CALCIUM 9.5 mg/dL (8.4-10.2); CARBON DIOXIDE 28 mmol/L (22-30); CHLORIDE 103 mmol/L (98-107); GLUCOSE 126 mg/dL (75-110); POTASSIUM 4.1 mmol/L (3.6-5.0); TOTAL PROTEIN 7.2 g/dL (6.3-8.2)
[2020-10-11 23:20] LABS: ACETAMINOPHEN < 10 ug/mL (10-30); ALCOHOL < 10 mg/dL (NONE DETECTED); SALICYLATE < 1.0 mg/dL (2.0-20.0)
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
[2020-10-12 00:01] LABS: APPEARANCE,URINE CLOUDY; BILIRUBIN,URINE NEGATIVE (NEGATIVE); COLOR,URINE YELLOW; GLUCOSE, URINE NEGATIVE (NEGATIVE); KETONES,URINE NEGATIVE (NEGATIVE); LEUKOCYTE ESTERASE,URINE TRACE (NEGATIVE); NITRITE,URINE NEGATIVE (NEGATIVE); PROTEIN,URINE NEGATIVE (NEGATIVE)
--- NOTE | 2020-10-12 00:01 | RADIOLOGY REPORT (SQ) ---
CLINICAL HISTORY: injury COMPARISON: None. TECHNIQUE: XR LUMBAR SPINE ANTEROPOSTERIOR, LATERAL, AND OBLIQUES 10/11/2020 10:15 PM GOVERNMENT TEACHER FINDINGS: There is no acute fracture. Vertebral body heights are preserved. There is grade 1 anterolisthesis of L5 on S1 by approximately 1.4 cm. There is mild lower lumbar facet arthritis. There is moderate narrowing of the L5-S1 disc. Soft tissues are unremarkable. IMPRESSION: No acute fracture or subluxation.
[2020-10-12 00:09] LABS: URINE BARBITURATES SCREEN NEGATIVE; URINE BENZODIAZEPINES SCREEN NEGATIVE; URINE COCAINE SCREEN NEGATIVE; URINE MARIJUANA (THC) SCREEN NEGATIVE; URINE METHADONE SCREEN NEGATIVE; URINE PHENCYCLIDINE SCREEN NEGATIVE
--- NOTE | 2020-10-12 06:54 | ER Document Report ---
ED General - General Chief Complaint: Pain All Over Stated Complaint: PAIN Time Seen by Provider: 10/11/20 22:01 Primary Care Provider: [facility] [Provider Group] - Follow up as needed [facility] [Provider Group] - Follow up as needed [facility] [Provider Group] - Follow up as needed Mode of Arrival: Ambulatory Information source: Patient Notes: 50-year-old female presented to ED for complaint of left rib and low back pain. She states she went to get help with her meth addiction. She states she got argument with her nephew and boyfriend earlier today and Used a couple times injuring her lower back and chest. She states she wanted help getting off of her meth. She denies any suicidal or homicidal ideations. I did discuss all of her results of her labs and x-rays with her. I did give her a written report of the labs and x-rays. I did give her a resource sheet for mental health and for substance since abuse. Planed to her that she could take these lab results and x-ray results with her to [place] if she decided she wanted to go there for her substance abuse. Patient was very angry and rude throughout the exam. She did not want me to touch her but she did allow me to listen to her heart and lungs and abdomen. She did let me look at her back and ribs but I did not see any bruising or any injuries. Her x-rays were negative for acute injuries. She was positive for meth. She states she had been smoking marijuana also but her marijuana was negative in the urine. She was in no distress but very angry and fidgety. Constitutional: Negative for fever. HENT: Negative for sore throat. Eyes: Negative for visual changes. Cardiovascular: Complaint of rib tenderness mild tachycardia due to the meth addiction Respiratory: Negative for shortness of breath. Gastrointestinal: Negative for abdominal pain, vomiting or diarrhea. Genitourinary: Negative for dysuria. Musculoskeletal: Complains of pain to the low back but also complains of pain all over. She always has pain according to the patient. Skin: Negative for rash. Neurological: Fidgety due to her meth addiction. She was very angry and rude throughout her exam 10 point ROS negative except as marked above and in HPI. VITAL SIGNS: Within normal limits. GENERAL: No acute distress, non-toxic appearance. HEAD: Normal with no signs of head trauma. CHEST: Clear breath sounds bilaterally. No wheezes, rales, or rhonchi. CARDIAC: Regular rate and rhythm. VASCULAR: No Edema. Peripheral pulses normal and equal in all extremities. ABDOMEN: Normal and soft with no tenderness, no masses or pulsatile masses. GASTROINTESTINAL: Bowel sounds normal GENITOURINARY: Normal, No tenderness LYMPATHTIC: No lymphadenopathy noted. MUSCULOSKELETAL: Good range of motion of all major joints. Extremities without clubbing, cyanosis or edema. NEUROLOGICAL: Alert and oriented but very anxious and angry throughout her exam. PSYCHIATRIC: Normal Affect, judgement and mood. SKIN: Picking mcclelland on her arms and legs from her meth addiction TRAVEL OUTSIDE OF THE [place] IN LAST 30 DAYS: No - HPI Onset: This evening Onset/Duration: Persistent Quality of pain: Sharp Severity: Severe Pain Level: 5 Associated symptoms: Body/muscle aches, Other - Patient states she always has pain all over Exacerbated by: Denies Relieved by: Denies Similar symptoms previously: Yes Recently seen / treated by doctor: No - Related Data Allergies/Adverse Reactions: No Known Allergies Allergy (Unverified 05/25/19 17:10) Home Medications: denies Past Medical History - General Information source: Patient - Social History Smoking Status: Current Some Day Smoker Chew tobacco use (# tins/day): No Frequency of alcohol use: Occasional Drug Abuse: Marijuana, Methamphetamine Family History: Reviewed & Not Pertinent - Past Medical History Cardiac Medical History: Reports: Hx Hypertension Renal/ Medical History: Denies: Hx Peritoneal Dialysis Psychiatric Medical History: Reports: Hx Attention Deficit Hyperactivity Disorder, Hx Bipolar Disorder, Hx Depression, Hx Schizophrenia Past Surgical History: Reports: Hx Section - Immunizations Hx Diphtheria, Pertussis, Tetanus Vaccination: Yes Physical Exam - Vital signs Vitals: Temp Pulse Resp BP Pulse Ox 97.7 F 89 17 137/90 H 96 10/11/20 21:48 10/11/20 21:48 10/11/20 21:48 10/11/20 21:48 10/11/20 21:48 Course - Vital Signs Vital signs: Temp Pulse Resp BP Pulse Ox 97.7 F 89 17 137/90 H 96 10/11/20 21:48 10/11/20 21:48 10/11/20 21:48 10/11/20 21:48 10/11/20 21:48 - Laboratory Results Result Diagrams: 10/11/20 22:40 10/11/20 22:40 Laboratory Results Interpreted: 10/11/20 10/11/20 22:40 23:25 Sodium 135.6 L Glucose 126 H AST 57 H ALT 74 H Alkaline Phosphatase 135 H Urine Urobilinogen 2.0 H Ur Leukocyte Esterase TRACE H Salicylates < 1.0 L Acetaminophen < 10 L Critical Laboratory Results Reviewed: No Critical Results - Radiology Results Critical Radiology Results Reviewed: No Critical Results Discharge - Discharge Clinical Impression: Pain all over, Substance abuse Condition: Stable Disposition: HOME, SELF-CARE Additional Instructions: You stated you were seen today for complaint of left rib and low back pain after you got an argument with your nephew and boyfriend. When I examined you you stated you have pain all over. Your x-rays are negative for any pneumothorax or any acute chest injuries. You have some degenerative disc disease in your lower back but there is no acute fractures in your back. You have requested a dose of Tylenol and Motrin before you be discharged and you will be provided with those. Urine was positive for meth. I have given you a copy of your labs and your x- rays. I have also given you a copy of the mental health resources and the substance abuse and alcohol detox resources. If you want to walk over to [place] these are your labs and x-rays that you can take with you or you can follow-up with one of the other resources I provided. Acetaminophen Acetaminophen may be taken for pain relief or fever control. It's much safer than aspirin, offering a wider range of "safe" dosages. It is safe during . Some brand names are Tylenol, Panadol, Datril, Anacin 3, Tempra, and Liquiprin. Acetaminophen can be repeated every four hours. The following are maximum recommended dosages: WEIGHT Dose Drops Elixir Chewable(80mg) (LBS.) drprs=droppers tsp=teaspoon 6 40 mg .4 ml (1/2) 6-11 80 mg .8 ml (full) 1/2 tsp 1 tab 12-16 120 mg 1 1/2 drprs 3/4 tsp 1 1/2 tabs 17-23 160 mg 2 drprs 1 tsp 2 tabs 24-30 240 mg 3 drprs 1 1/2 tsp 3 tabs 30-35 320 mg 2 tsp 4 tabs 36-41 360 mg 2 1/4 tsp 4 1/2 tabs 42-47 400 mg 2 1/2 tsp 5 tabs 48-53 480 mg 3 tsp 6 tabs 54-59 520 mg 3 1/4 tsp 6 1/2 tabs 60-64 560 mg 3 1/2 tsp 7 tabs 65-70 600 mg 3 3/4 tsp 7 1/2 tabs 71-76 640 mg 4 tsp 8 tabs 77-82 720 mg 4 1/2 tsp 9 tabs 83-88 800 mg 5 tsp 10 tabs >89 pounds or adults 650 mg to 900 mg Acetaminophen can be repeated every four hours. Maximum daily dose not to exceed 4000 mg. These maximum recommended dosages are slightly higher than the dosages written on the product container, but these dosages are very safe and well below the toxic dosage for acetaminophen. Ibuprofen Ibuprofen is an excellent, safe drug for pain control. In addition, it has potent antiinflammatory effects which are beneficial, especially in the treatment of injuries, arthritis, or tendonitis. It's best to take ibuprofen with food. Persons with ulcer disease or allergy to aspirin should notify their physician of this before taking ibuprofen. Take the medication exactly as prescribed. Don't take additional doses unless instructed to do so by your doctor. If you develop wheezing, shortness of breath, hives, faintness, stomach pain, vomiting, or dark black stools, return for re-evaluation at once. FOLLOW-UP CARE: If you have been referred to a physician for follow-up care, call the physicians office for an appointment as you were instructed or within the next two days. If you experience worsening or a significant change in your symptoms, notify the physician immediately or return to the Emergency Department at any time for re-evaluation. Forms: Elevated Blood Pressure, Smoking Cessation Education Referrals: [facility] [Provider Group] - Follow up as needed [facility] [Provider Group] - Follow up as needed [facility] [Provider Group] - Follow up as needed
[2020-10-12] MEDS ORDERED: IBUPROFEN 400 MG TABLET PO ONE (06:56)
[2020-10-12] MEDS ORDERED: ACETAMINOPHEN 325 MG TABLET PO ONE (06:56)
[2020-10-12 09:53] VITALS: BP 129/91
== END 2020-10-12 09:50 | disposition home or self-care (01) ==
LOC: ER 21:34
DX: M79.10 Myalgia, unspecified site (principal); F19.10 Other psychoactive substance abuse, uncomplicated; R07.81 Pleurodynia; M54.5 Low back pain; R00.0 Tachycardia, unspecified; F17.200 Nicotine dependence, unspecified, uncomplicated; I10 Essential (primary) hypertension
CPT/HCPCS: 99284; 36415; 80307 ×4; 84703; 85025; 80053; 81001; 71046; 72110; J3490